=== PATIENT | male | born 1965 | race Caucasian/White ===

== ENCOUNTER 2018-03-02 02:34 | Inpatient (IN) | payer MEDICARE, MEDICAID ==
[2018-03-02] MEDS ORDERED: LORazepam INJ* 2 MG/ML 1 ML VIAL ONE (03:12)
[2018-03-02] MEDS ORDERED: diPHENhydraMINE IV* 50 MG/ML 1 ml VIAL (BENADRYL) ONE (03:12)
[2018-03-02] MEDS ORDERED: LORazepam TAB(*) 1 MG ONE (03:12)
[2018-03-02] MEDS ORDERED: Haloperidol INJ IV/IM* 5 MG/ML AMP ONE (03:12)
[2018-03-02 06:55] LABS: ABS Basophils 0.1 10^3/ul (0-0.2); ABS Eosinophils 0.1 10^3/ul (0-0.6); ABS Lymphocytes 2.3 10^3/ul (1.0-4.8); ABS Monocytes 0.9 10^3/ul (0-0.8); ABS Neutrophils 4.2 10^3/ul (1.5-7.7); ABS Nucleated RBC 0 10^3/ul; Eosinophil % 1.9 % (0-6); Hematocrit 38 % (42-52); Hemoglobin 12.9 g/dl (14.0-18.0); Lymphocyte % 30.6 % (25-47); Mean Corpuscular HGB Conc 34 g/dl (31-36); Mean Corpuscular Hemoglobin 29 pg (27-31); Mean Corpuscular Volume 86 fL (80-94); Mean Platelet Volume 7.8 um3 (7.4-10.4); Nucleated Red Blood Cells % 0.1; Platelet Count 187 10^3/ul (150-450); Red Blood Count 4.43 10^6/ul (4.00-5.40); Red Cell Distribution Width 15 % (10.5-15); White Blood Count 7.6 10^3/ul (3.5-10.8)
--- NOTE | 2018-03-02 06:57 | ED ---
Gato Moon Tiffany, scribed for Bayron Torres MD on 03/02/18 at 0318 . Psychiatric Complaint - HPI Summary HPI Summary: 52 year old M BIB EMS and police to [facility] complains of delusions since one hour ago. Symptoms aggravated by nothing. Symptoms alleviated by nothing. States that spaceship dropped him off from [place] and that he is [place]. - History Of Current Complaint Chief Complaint: EDMentalHealth Time Seen by Provider: 03/02/18 02:54 Hx Obtained From: Patient Onset/Duration: Lasting Hours - 1, Still Present Timing: Constant Aggravating Factor(s): Nothing Alleviating Factor(s): Nothing PMH/Surg Hx/FS Hx/Imm Hx Previously Healthy: No - LEV 5 CAV: Unable to confirm PMHx b/c pt is delusional Psychiatric History: Reports: Hx Inpatient Treatment, Hx Community Mental Health Tx, Hx Bipolar Disorder, Other Psychiatric Issues/Disorders - schizoaffective disorder - Surgical History Surgery Procedure, Year, and Place: LEV 5 CAV: Unable to confirm surg hx b/c pt is delusional - Immunization History Date of Tetanus Vaccine: unk Date of Influenza Vaccine: unk Infectious Disease History: Unable to Obtain/Confirm Infectious Disease History: Denies: Traveled Outside the [place] in Last 30 Days - Family History Known Family History: Positive: Other - LEV 5 CAV: Unable to confirm Fhx b/c pt is delusional - Social History Alcohol Amount: unknown Hx Substance Use: Yes Substance Use Type: Reports: Other Substance Use Comment - Amount & Last Used: unknown Smoking Status (MU): Unknown if Ever Smoked Review of Systems Negative: Fever Positive: Other - delusions All Other Systems Reviewed And Are Negative: Yes Physical Exam - Summary Physical Exam Summary: VITAL SIGNS: Reviewed. GENERAL: Patient is a well-developed and nourished male who is lying comfortable in the stretcher. Patient is not in any acute respiratory distress. HEAD AND FACE: No signs of trauma. No ecchymosis, hematomas or skull depressions. No sinus tenderness. EYES: PERRLA, EOMI x 2, No injected conjunctiva, no nystagmus. EARS: Hearing grossly intact. Ear canals and tympanic membranes are within normal limits. MOUTH: Oropharynx within normal limits. NECK: Supple, trachea is midline, no adenopathy, no JVD, no carotid bruit, no c- spine tenderness, neck with full ROM. CHEST: Symmetric, no tenderness at palpation LUNGS: Clear to auscultation bilaterally. No wheezing or crackles. CVS: Regular rate and rhythm, S1 and S2 present, no murmurs or gallops appreciated. ABDOMEN: Soft, non-tender. No signs of distention. No rebound no guarding, and no masses palpated. Bowel sounds are normal. EXTREMITIES: FROM in all major joints, no edema, no cyanosis or clubbing. NEURO: Alert and oriented x 3. No acute neurological deficits. Speech is normal and follows commands. SKIN: Dry and warm PSYCH: Patient is delusional, but cooperative Triage Information Reviewed: Yes Vital Signs On Initial Exam: Initial Vitals Temp Pulse Resp BP Pulse Ox 0 F 0 0 0/0 0 03/02/18 02:45 03/02/18 02:45 03/02/18 02:45 03/02/18 02:45 03/02/18 02:45 Vital Signs Reviewed: Yes Diagnostics - Vital Signs Vital Signs Temp Pulse Resp BP Pulse Ox 03/02/18 02:45 0 F 0 0 0/0 0 - Laboratory Lab Statement: Any lab studies that have been ordered have been reviewed, and results considered in the medical decision making process. Course/Dx - Course Course Of Treatment: 52 year old M BIB EMS and police to [facility] complains of delusions since one hour ago. Patient medically sedated in ED. Patient will be signed out to Dr. Montero at shift change, awaiting MHE, pending dispo. - Differential Dx/Clinical Impression Provider Diagnosis: Psychosis Discharge - Sign-Out/Discharge Documenting (check all that apply): Sign-Out Patient Signing out patient TO: Isaak Montero - awaiting MHE, pending dispo - Discharge Plan Condition: Stable The documentation as recorded by the Gato crawford Tiffany accurately reflects the service I personally performed and the decisions made by , Bayron Torres MD.
[2018-03-02 07:12] LABS: EGFR Non-African American 101.9 (>60)
[2018-03-02] MEDS ORDERED: LORazepam TAB(*) 1 MG PO ONE (10:46)
[2018-03-02] MEDS ORDERED: Haloperidol TAB* 5 MG PO ONE (10:46)
[2018-03-02] MEDS ORDERED: diPHENhydraMINE PO* 50 MG PO ONE (10:46)
--- NOTE | 2018-03-02 13:58 | ED ---
Talat Moon Angela, scribed for Isaak Montero MD on 03/02/18 at 1336 . Progress - Progress Note Progress Note: This pt was signed out by Dr. Torres, pending disposition, awaiting MHE. Pt had a mental health evaluation and his case was reviewed by Dr. Logan. Dr. Logan recommends admission to the unit with diagnosis of schizophrenia. Course/Dx - Diagnoses Provider Diagnoses: Schizophrenia Discharge - Sign-Out/Discharge Documenting (check all that apply): Discharge/Admit/Transfer - Admit, Receiving Sign-Out Receiving patient FROM: Bayron Torres - Discharge Plan Condition: Stable [facility] [place]: No Primary Care Phys,NOPCP [Primary Care Provider] - - Billing Disposition and Condition Condition: STABLE [place] [facility] [place] The documentation as recorded by the Talat crawford Angela accurately reflects the service I personally performed and the decisions made by Winston haywood Richard L, MD.
[2018-03-02] MEDS: Haloperidol TAB* 5 MG PO PRN (22:35)
[2018-03-02] MEDS: diPHENhydraMINE PO* 50 MG PO PRN (22:35)
[2018-03-03] MEDS: LORazepam TAB(*) 1 MG PO PRN ×2 (02:24→18:03)
[2018-03-03] MEDS: Vitamin THERAPEUTIC TAB PO SCH (08:14)
[2018-03-03] MEDS ORDERED: Paliperidone SUSTENNA* 156 MG/1 ML IM ONE (11:03)
[2018-03-03] MEDS: Atorvastatin* 20 MG TAB PO SCH (12:24)
[2018-03-03] MEDS: ARIPiprazole TAB* 15 MG PO SCH (12:24)
[2018-03-03] MEDS: busPIRone TAB* 15 MG PO SCH ×2 (12:25→20:12)
[2018-03-03] MEDS: Lisinopril TAB* 10 MG PO SCH (12:25)
[2018-03-03] MEDS: Famotidine TAB* 20 MG PO SCH (12:25)
[2018-03-03] MEDS: Lithium Carbonate TAB* 300 MG PO SCH ×2 (12:25→20:12)
[2018-03-03] MEDS: Fludrocortisone Acetate TAB* 0.1 MG PO SCH (12:52)
[2018-03-03] MEDS: Haloperidol TAB* 5 MG PO PRN (18:02)
[2018-03-03] MEDS: diPHENhydraMINE PO* 50 MG PO PRN (18:03)
--- NOTE | 2018-03-03 21:35 | HP ---
HISTORY AND PHYSICAL: DATE OF ADMISSION: 03/02/18. SUPERVISING PSYCHIATRIST: Dr. Joesph Logan* (dictated by HOWARD Tellez) . JUSTIFICATION FOR ADMISSION: The patient presented to the emergency department via police due to bizarre and delusional behavior in the community. He is originally from [place]. He has a history of schizophrenia and is unable to care for himself at this time. He merits hospitalization for immediate safety and stabilization. CHIEF COMPLAINT: "I am [place] student from 1881." HISTORY OF PRESENT ILLNESS: During the interview, the patient is disorganized and floridly psychotic. Most of the following history is obtained from collateral information from his sister. The patient is a 52-year-old white male , domiciled, and disabled, who lives in the [place] area. He was recently released from [facility] in [place]. The patient drove his own vehicle to [place]. He reported that he had bought a car to come down here and wanted to tell [place] to be the [facility] [employer] and Isaak reports that he has multiple cures for multiple diseases, including schizophrenia. According to the sister, the patient has a 22-year history of schizo-affective disorder bipolar type. The patient's mother in 2009. His father and elder sister last year and he has been declining mentally ever since. The patient was hospitalized at [facility] for eight months in 2017 and has a significant history of psychiatric hospitalizations in the [facility]. Sister reports he has a history of driving to various areas including across state borders and going off of his medications. He has done this as far as [place] and [place] and been hospitalized for lengthy amounts of time. His sister does report that when he is on medications, he is able to function primarily independently. He has a history of becoming violent, combative, and aggressive when he is in a delusional state. As stated above, while I am meeting with the patient, he is tangential, grandiose, and floridly psychotic. 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, and that he is scared because he is being chased by the [place] mafia. When I asked about social history, he gives me fictitious names such as Tuki, Pluto, and Wil. Patient goes on to describe various diseases for which he has cures. 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 The patient presents as hyperactive and hyper-christianity. He is also paranoid. He rescinds the release of information for his sister while we were talking. He declined to sign release of information trying to get prior records from [place]. He denies being hospitalized in hospitals that we know he has been. The patient denies depressed mood or anxious mood. He denies suicidality. He denies history of suicide attempts. He presents with an expansive mood. He is noted to attend to internal stimuli. He denies violent ideations, HI, or SI. PAST PSYCHIATRIC HISTORY: As stated above, he was most recently at [facility] in [place] for a brief stay. He had been getting his medications through [facility] outpatient in [place]. He had a primary care provider, named Dr. Tenorio, who manages his medications up to a week ago; but is no longer doing so due to the overwhelming number of calls and visits from the patient. As stated above, the patient has multiple psychiatric hospitalizations in [place], [place]. This is his first treatment inpatient to [facility] in [place]. TRAUMA ABUSE HISTORY: The patient denies history of abuse. He states his only traumatic event was last night when he was coming down from [facility]. PAST MEDICAL HISTORY: Medical history is difficult obtain due to the patient's presentation. He is taking medications for hypertension, hyperlipidemia, and GERD. The patient is morbidly obese, adrenal insufficiency. PAST SURGICAL HISTORY: He denies surgical history. PRIMARY CARE PROVIDER: The patient initially tells me it is Dr. Youssef, which is his fictitious doctor from [facility]. He was recently terminated from PCP, Dr Tenorio in [place]. CURRENT MEDICATIONS: Current medications were verified by nursing staff through his local pharmacy. 1. Florinef 0.1 mg p.o. daily. 2. Invega Sustenna IM 156 mg q.30 days. 3. Famotidine 20 mg p.o. daily. 4. Lipitor 20 mg p.o. daily. 5. Buspirone 5 mg p.o. b.i.d. 6. Downs carbonate 300 mg p.o. b.i.d. 7. Lisinopril 20 mg p.o. daily. 8. Aripiprazole 15 mg p.o. daily. Through our conversations, the patient states that he did not have Invega Sustenna injection and needs one today. ALLERGIES: The patient denies having allergies. FAMILY PSYCHIATRIC HISTORY: Unknown at this time. The patient states his family is disease free. SOCIAL HISTORY: The patient alludes to both of his parents passing away. He states that he has two sisters, Trudy and sister, Fatou. As stated above, he has an elder sister, who this year along with the father. The patient tells me he grew up in [place]. He refers to a step-father. SUBSTANCE USE HISTORY: The patient reports drinking alcohol approximately once a month and states that he likes a particular brand of liquor, I cannot remember what it is. He denied cigarettes, marijuana or other substance use. He has not given us a urine sample at this time. REVIEW OF SYSTEMS: The patient denies pain and there is no apparent distress. Constitutional: Negative. No fever, chills, or fatigue. ENT: Negative. Cardiovascular: Negative. Denies chest pain or palpitations. Respiratory: Negative. Denies shortness of breath or cough. Genitourinary: Negative. Musculoskeletal: Negative. Neurological: Negative. PHYSICAL EXAMINATION VITAL SIGNS: Height is 5 feet 6 inches. His weight is approximately 250 pounds. The patient has refused physical exam and vital signs. We will continue to establish rapport and physical exam will be attempted at a later time. DIAGNOSTIC STUDIES/LAB DATA: Laboratory data: CBC is noteworthy for a H and H slightly low at 12.9 and 38. Chemistry is within normal limits including TSH at 1.9. Hemoglobin A1c is normal at 5.2. Lipid panel is within normal limits. Toxicology is negative for salicylates, acetaminophen, or alcohol. We are awaiting a urinalysis and urine drug screen. MENTAL STATUS EXAM: The patient is a large white male, who appears slightly older than stated age. He is unshaved. He is dressed casually in his own clothing. He is disheveled and poorly groomed. His attitude is cooperative with brief moments of hostility and suspicion. He is alert and oriented x3. His memory is difficult to ascertain due to his psychotic state. Speech is rapid, pressured. His mood is expansive. Affect is labile. Eye contact is fair, poor at times. Thought process is tangential with flight of ideas. Thought content is positive for delusions, grandiosity, hyperreligiosity, and paranoia. Insight and judgement are impaired. Fund of knowledge is adequate. DIAGNOSES: Schizo-affective disorder bipolar type, current episode manic, hypertension, hyperlipidemia, adrenal insufficiency, gastroesophageal reflux disease. ASSESSMENT: Isaak is a 52-year-old male with an extensive psychiatric history , who presented for the first time to [facility] last evening. Apparently, he had driven his car to [place] impulsively. He interacted with the police multiple times and it was noted that he was psychotic and was brought to the emergency department. Collateral obtained from his sister, who was very helpful in identifying Isaak's history. The patient's medication list was verified by the pharmacy and we will reinstate those medications including his COFFEY Invega Sustenna today. PLAN: Admit to adult behavioral services unit on 9.39 status. Code status is full. The patient is on 15-minute checks for his safety. We will titrate medications to efficacy and monitor for mood and thought content. The patient is not appropriate for groups at this time. Estimated length of stay is 1 to 2 weeks. Discharge planning will include family involvement and outpatient providers with the patient's consent. HOWARD TELLEZ [id number]/CPS #: [id number] ELLE
[2018-03-04] MEDS: Haloperidol TAB* 5 MG PO PRN (05:30)
[2018-03-04] MEDS: diPHENhydraMINE PO* 50 MG PO PRN (05:30)
[2018-03-04] MEDS: LORazepam TAB(*) 1 MG PO PRN ×3 (05:30→20:00)
[2018-03-04] MEDS ORDERED: chlorproMAZINE TAB* 50 MG PO PRN (08:14)
[2018-03-04] MEDS: Famotidine TAB* 20 MG PO SCH (08:16)
[2018-03-04] MEDS: Lithium Carbonate TAB* 300 MG PO SCH ×2 (08:17→20:01)
[2018-03-04] MEDS: ARIPiprazole TAB* 15 MG PO SCH (08:17)
[2018-03-04] MEDS: Vitamin THERAPEUTIC TAB PO SCH (08:17)
[2018-03-04] MEDS: Atorvastatin* 20 MG TAB PO SCH (08:17)
[2018-03-04] MEDS: Lisinopril TAB* 10 MG PO SCH (08:17)
[2018-03-04] MEDS: busPIRone TAB* 15 MG PO SCH (08:18)
[2018-03-04] MEDS: Fludrocortisone Acetate TAB* 0.1 MG PO SCH (08:18)
[2018-03-04] MEDS ORDERED: Lithium Carbonate TAB* 300 MG PO SCH (09:00)
[2018-03-04] MEDS ORDERED: chlorproMAZINE TAB* 50 MG PO ONE (10:31)
--- NOTE | 2018-03-04 10:42 | PN ---
Subjective - Subjective Date of Service: 03/04/18 Service Type: 60874 Hosp care 25 min moderate complexity Subjective: Patient did not sleep well last night. He continues to present as floridly psychotic and manic. He responds to internal stimuli and is noted to be destructive in his room. He runs about the unit with seemingly no purpose, at times. He asks to meet with a doctor and principal technical writer notifies him of plan to be seen by on-call psychiatrist this weekend. Objective - Appearance Appearance: Obese Dysmorphic Features: No Hygiene: Mal-odorous Grooming: Disheveled - Behavior Psychomotor Activities: Abnormal-Increased Exhibits Abnormal Movement: No - Attitude and Relatedness Attitude and Relatedness: Psychotically Related Eye Contact: Poor - Speech Quality: Pressured Latencies: Normal Quantity: Terse - Mood Patient's Decription of Mood: no answer - Affect Observed Affect: Expansive Affect Consistent with: Euphoria - Thought Process Patient's Thought Process: Filght of Ideas Thought Content: Yes Paranoid Ideation, No Passive Wish, No Suicidal Planning, No Homicidal Ideation - Sensorium Experiencing Hallucinations: Yes Type of Hallucinations: Visual: No, Auditory: Yes, Command: Yes - Level of Consciousness Level of Consciousness: Alert Orientation: Yes Intact, Yes Orientated to Time, Yes Orientated to Place, Yes Orientated to Person - Impulse Control Impulse Control: Impaired - Insight and Judgement Insight and Judgement: Impaired - Group Participation Particating in Group Activities: No - Medication Management Medication Management Adherence: Yes Assessment - Assessment Merits Inpatient Hospitalization: For Immediate Safety, For Stabilization Inpatient DSM-V Dx: F25.0 Clinical Impression: 52yo white male with multiple hospitalizations at [facility] and other [facility]. He drove to [place] impulsively and was psychotically disorganized in the community. Collateral obtained from sisters in [place]. Isaak has a hx of schizoaffective d/o, bipolar type and can be violent when delusional. He is actively psychotic and merits hospitalization for immediate safety and stabilization. Plan - Plan Treatment Plan: Name: ISAAK LEOS Birthdate: 1965 [id number] continue acute intensive psychiatric treatment. Med changes: DC aripiprazole and buspirone. Increase lithium hs dose to 450mg. add invega 6mg po daily with plan to give invega sustenna higher dose on 03/07/18. DC haloperidol and utilize thorazine and lorazepam prn for agitation. obtain lithium level on morning of 03/07/18. discharge planning to include family and outpatient providers per patient consent. Continued Medication Management: Start Medication Medications: Current Medications Acetaminophen (Tylenol Tab*) 650 mg PO Q4H PRN PRN Reason: for pain; or Temp >101 F Atorvastatin Calcium (Lipitor*) 20 mg PO DAILY [facility] Last Admin: 03/04/18 08:17 Dose: 20 mg Chlorpromazine HCl (Thorazine Tab*) 100 mg PO Q6H PRN PRN Reason: AGITATION Diphenhydramine HCl (Benadryl Po*) 50 mg PO Q6H PRN PRN Reason: AGITATION Last Admin: 03/04/18 05:30 Dose: 50 mg Famotidine (Pepcid Tab*) 20 mg PO DAILY [facility] Last Admin: 03/04/18 08:16 Dose: 20 mg Fludrocortisone Acetate (Florinef Tab*) 0.1 mg PO DAILY [facility] Last Admin: 03/04/18 08:18 Dose: 0.1 mg Lisinopril (Prinivil Tab*) 20 mg PO DAILY [facility] Last Admin: 03/04/18 08:17 Dose: 20 mg [place] Carbonate (Sardis Carbonate Tab*) 450 mg PO BEDTIME HOWARD S[place]is Carbonate (Sardis Carbonate Tab*) 300 mg PO 0900 HOWARD Lorazepam (Ativan Tab(*)) 2 mg PO Q6H PRN PRN Reason: ANXIETY Last Admin: 03/04/18 05:30 Dose: 2 mg Multivitamins (Theragran Tab*) 1 tab PO DAILY [facility] Last Admin: 03/04/18 08:17 Dose: 1 tab Paliperidone (Invega Er Tab*) 6 mg PO BEDTIME HOWARD Paliperidone Palmitate (Invega Sustenna*) 234 mg IM ONCE ONE Stop: 03/07/18 10:01 - Discharge Plan Discharge Plan: Consider Longer Term Tx
[2018-03-04] MEDS: Paliperidone ER TAB* 6 MG TAB.ER PO SCH (20:03)
[2018-03-05] MEDS: Vitamin THERAPEUTIC TAB PO SCH (09:03)
[2018-03-05] MEDS: Atorvastatin* 20 MG TAB PO SCH (09:03)
[2018-03-05] MEDS: Lisinopril TAB* 10 MG PO SCH (09:03)
[2018-03-05] MEDS: Famotidine TAB* 20 MG PO SCH (09:03)
[2018-03-05] MEDS: Lithium Carbonate TAB* 300 MG PO SCH ×2 (09:03→21:42)
[2018-03-05] MEDS: Fludrocortisone Acetate TAB* 0.1 MG PO SCH (09:04)
--- NOTE | 2018-03-05 11:52 | PN ---
Subjective - Subjective Date of Service: 03/05/18 Service Type: 24527 Hosp care 15 min low complexity Subjective: Mr. Leos is seen in weekend coverage for orthotic technician, Johanne Laura. He is found lying down in his bed, talking to himself as though conversationally with an unseen person. "I want you to know that you have my name wrong in your system. It's not Kali. It's Shipping Processor. [id number]!" He goes on to say that he is in [place] to attend a summer camp at [employer] and that he is the [employer] of the [place]. He inquires whether I'm a fan of zappit but I mistakenly think he's asking me if I'm a fan of The [employer] Is Right. I attempt to clarify if he means the version with Edvin Canales, to which he replies "Edvin Canales, Henry Douglas, they walked on water!" Staff report that he is adherent with medications and cooperative on the unit. Objective - Appearance Appearance: Obese Dysmorphic Features: No Hygiene: Normal Grooming: Disheveled - Behavior Psychomotor Activities: Abnormal-Increased Exhibits Abnormal Movement: No - Attitude and Relatedness Attitude and Relatedness: Psychotically Related Eye Contact: Fair - Speech Quality: Pressured Latencies: Short Quantity: Copious - Mood Patient's Decription of Mood: "Great" - Affect Observed Affect: Expansive Affect Consistent with: Euphoria - Thought Process Patient's Thought Process: Disorganized Thought Content: Yes Paranoid Ideation, No Passive Wish, No Suicidal Planning, No Homicidal Ideation - Sensorium Experiencing Hallucinations: No, Sensorium is Clear Type of Hallucinations: Visual: No, Auditory: No, Command: No - Level of Consciousness Level of Consciousness: Alert Orientation: Yes Intact, Yes Orientated to Time, Yes Orientated to Place, Yes Orientated to Person - Impulse Control Impulse Control: Poor - Insight and Judgement Insight and Judgement: Impaired - Group Participation Particating in Group Activities: No - Medication Management Medication Management Adherence: Yes Assessment - Assessment Merits Inpatient Hospitalization: For Immediate Safety, For Stabilization Inpatient DSM-V Dx: F25.0 Clinical Impression: 52 y.o. single, white male with a history of chronic schizoaffective disorder, serial non-adherence with medications and multiple acute and intermediate care psychiatric hospitalizations, who is brought in to the hospital on involuntary 9.41 legal status by the police for creating a public disturbance, who presents with manic and psychotic symptoms and inability to care for himself in the community. Plan - Plan Treatment Plan: Name: CRISELDA LEOS Birthdate: 1965 [id number] The patient is on a medication regimen of COFFEY paliperidone, next dose due WednesdayMarch 07, lithium and prn chlorpromazine. He remains psychotic and manic and in need of further inpatient psychiatric stabilization for his safety. Continued Medication Management: Different Medication Medications: Current Medications Acetaminophen (Tylenol Tab*) 650 mg PO Q4H PRN PRN Reason: for pain; or Temp >101 F Atorvastatin Calcium (Lipitor*) 20 mg PO DAILY [facility] Last Admin: 03/05/18 09:03 Dose: 20 mg Chlorpromazine HCl (Thorazine Tab*) 100 mg PO Q6H PRN PRN Reason: AGITATION Diphenhydramine HCl (Benadryl Po*) 50 mg PO Q6H PRN PRN Reason: AGITATION Last Admin: 03/04/18 05:30 Dose: 50 mg Famotidine (Pepcid Tab*) 20 mg PO DAILY [facility] Last Admin: 03/05/18 09:03 Dose: 20 mg Fludrocortisone Acetate (Florinef Tab*) 0.1 mg PO DAILY [facility] Last Admin: 03/05/18 09:04 Dose: 0.1 mg Lisinopril (Prinivil Tab*) 20 mg PO DAILY [facility] Last Admin: 03/05/18 09:03 Dose: 20 mg [place] Carbonate ([place] Carbonate Tab*) 450 mg PO BEDTIME HOWARD Last Admin: 03/04/18 20:01 Dose: 450 mg [place] Carbonate ([place] Carbonate Tab*) 300 mg PO 0900 HOWARD Last Admin: 03/05/18 09:03 Dose: 300 mg Lorazepam (Ativan Tab(*)) 2 mg PO Q6H PRN PRN Reason: ANXIETY Last Admin: 03/04/18 20:00 Dose: 2 mg Multivitamins (Theragran Tab*) 1 tab PO DAILY [facility] Last Admin: 03/05/18 09:03 Dose: 1 tab Paliperidone (Invega Er Tab*) 6 mg PO BEDTIME HOWARD Last Admin: 03/04/18 20:03 Dose: 6 mg Paliperidone Palmitate (Invega Sustenna*) 234 mg IM ONCE ONE Stop: 03/07/18 10:01 - Discharge Plan Discharge Plan: Inpatient Hospitalization Lab Results - Lab Results Lab Results: 03/02/18 03/02/18 06:48 06:48 Sodium 138 Potassium 4.4 Chloride 108 Carbon Dioxide 27 Anion Gap 3 BUN 16 Creatinine 0.80 Est GFR ( Amer) 123.3 Est GFR (Non-Af Amer) 101.9 BUN/Creatinine Ratio 20.0 Glucose 94 Hemoglobin A1c 5.2 Calcium 8.8 Total Bilirubin 0.40 AST 26 ALT 19 Alkaline Phosphatase 66 Total Protein 6.1 L Albumin 3.7 Globulin 2.4 Albumin/Globulin Ratio 1.5 Triglycerides 52 Cholesterol 132 LDL Cholesterol 80 HDL Cholesterol 42.1 TSH 1.90 Salicylates < 2.50 Acetaminophen < 15 Serum Alcohol < 10
[2018-03-05] MEDS: LORazepam TAB(*) 1 MG PO PRN (15:23)
[2018-03-05] MEDS: Paliperidone ER TAB* 6 MG TAB.ER PO SCH (21:40)
[2018-03-06] MEDS: Fludrocortisone Acetate TAB* 0.1 MG PO SCH (07:05)
[2018-03-06] MEDS: Atorvastatin* 20 MG TAB PO SCH (07:05)
[2018-03-06] MEDS: Famotidine TAB* 20 MG PO SCH (07:05)
[2018-03-06] MEDS: Vitamin THERAPEUTIC TAB PO SCH (07:05)
[2018-03-06] MEDS: Lisinopril TAB* 10 MG PO SCH (07:05)
[2018-03-06] MEDS: Lithium Carbonate TAB* 300 MG PO SCH ×2 (07:05→19:52)
[2018-03-06] MEDS: Paliperidone ER TAB* 6 MG TAB.ER PO SCH (19:52)
[2018-03-06] MEDS: LORazepam TAB(*) 1 MG PO PRN (23:50)
[2018-03-06] MEDS: diPHENhydraMINE PO* 50 MG PO PRN (23:50)
[2018-03-06] MEDS: chlorproMAZINE TAB* 100 MG PO PRN (23:50)
[2018-03-07] MEDS: Atorvastatin* 20 MG TAB PO SCH (08:46)
[2018-03-07] MEDS: Lithium Carbonate TAB* 300 MG PO SCH ×2 (08:47→21:00)
[2018-03-07] MEDS: Vitamin THERAPEUTIC TAB PO SCH (08:47)
[2018-03-07] MEDS: Lisinopril TAB* 10 MG PO SCH (08:47)
[2018-03-07] MEDS: Famotidine TAB* 20 MG PO SCH (08:47)
[2018-03-07] MEDS: Fludrocortisone Acetate TAB* 0.1 MG PO SCH (08:48)
[2018-03-07] MEDS ORDERED: Paliperidone SUSTENNA* 234 MG/1.5 ML IM ONE (10:00)
--- NOTE | 2018-03-07 11:47 | PN ---
Subjective - Subjective Date of Service: 03/07/18 Service Type: 06571 Hosp care 15 min low complexity Subjective: Criselda, who states his name is Gita or Celsa, states he is sad and depressed, although not so much at the immediate moment. He asks questions multiple times and does not seem ready to retain information immediately. When given an opportunity to discuss medications, he was quiet and did not have much to say. Objective - Appearance Appearance: Obese Dysmorphic Features: No Hygiene: Normal Grooming: Disheveled - Behavior Psychomotor Activities: Normal Exhibits Abnormal Movement: No - Attitude and Relatedness Attitude and Relatedness: Psychotically Related Eye Contact: Fair - Speech Quality: Unpressured Latencies: Normal Quantity: Appropriate - Mood Patient's Decription of Mood: "Okay" - Affect Observed Affect: Constricted Affect Consistent with: Dysphoria - Thought Process Patient's Thought Process: Coherent, Loose Associations Thought Content: No Passive Wish, No Suicidal Planning, No Homicidal Ideation, No Paranoid Ideation - Sensorium Experiencing Hallucinations: No, Sensorium is Clear Type of Hallucinations: Visual: No, Auditory: No, Command: No - Level of Consciousness Level of Consciousness: Alert Orientation: Yes Intact, Yes Orientated to Time, Yes Orientated to Place, Yes Orientated to Person - Impulse Control Impulse Control: Tenuous - Insight and Judgement Insight and Judgement: Impaired - Group Participation Particating in Group Activities: No - Medication Management Medication Management Adherence: Yes Assessment - Assessment Merits Inpatient Hospitalization: For Immediate Safety Inpatient DSM-V Dx: F25.0 Clinical Impression: 52-year-old obese man with psychosis who talks frequently about Star [employer]. He is currently psychotic and behaving strangely. Plan - Plan Treatment Plan: Name: CRISELDA LEOS Birthdate: 1965 [id number] Medications: Current Medications Acetaminophen (Tylenol Tab*) 650 mg PO Q4H PRN PRN Reason: for pain; or Temp >101 F Atorvastatin Calcium (Lipitor*) 20 mg PO DAILY [facility] Last Admin: 03/07/18 08:46 Dose: 20 mg Chlorpromazine HCl (Thorazine Tab*) 100 mg PO Q6H PRN PRN Reason: AGITATION Last Admin: 03/06/18 23:50 Dose: 100 mg Diphenhydramine HCl (Benadryl Po*) 50 mg PO Q6H PRN PRN Reason: AGITATION Last Admin: 03/06/18 23:50 Dose: 50 mg Famotidine (Pepcid Tab*) 20 mg PO DAILY [facility] Last Admin: 03/07/18 08:47 Dose: 20 mg Fludrocortisone Acetate (Florinef Tab*) 0.1 mg PO DAILY [facility] Last Admin: 03/07/18 08:48 Dose: 0.1 mg Lisinopril (Prinivil Tab*) 20 mg PO DAILY [facility] Last Admin: 03/07/18 08:47 Dose: 20 mg [place] Carbonate ([place] Carbonate Tab*) 450 mg PO BEDTIME [facility] Last Admin: 03/06/18 19:52 Dose: 450 mg [place] Carbonate ([place] Carbonate Tab*) 300 mg PO 0900 [facility] Last Admin: 03/07/18 08:47 Dose: 300 mg Lorazepam (Ativan Tab(*)) 2 mg PO Q6H PRN PRN Reason: ANXIETY Last Admin: 03/06/18 23:50 Dose: 2 mg Multivitamins (Theragran Tab*) 1 tab PO DAILY [facility] Last Admin: 03/07/18 08:47 Dose: 1 tab Paliperidone (Invega Er Tab*) 6 mg PO BEDTIME [facility] Last Admin: 03/06/18 19:52 Dose: 6 mg - Discharge Plan Discharge Plan: Outpatient Follow Up Additional Comments: Criselda is not yet ready for discharge. As more medications make their way into his body, more stability may be found. At that point he will be ready for discharge.
[2018-03-07] MEDS: LORazepam TAB(*) 1 MG PO PRN (14:48)
[2018-03-07] MEDS: chlorproMAZINE TAB* 100 MG PO PRN (14:49)
[2018-03-07] MEDS: diPHENhydraMINE PO* 50 MG PO PRN (14:49)
[2018-03-07] MEDS: Paliperidone ER TAB* 6 MG TAB.ER PO SCH (21:00)
[2018-03-08] MEDS: Acetaminophen TAB* 325 MG PO PRN ×3 (03:17→20:09)
[2018-03-08] MEDS: Vitamin THERAPEUTIC TAB PO SCH (07:05)
[2018-03-08] MEDS: Fludrocortisone Acetate TAB* 0.1 MG PO SCH (07:05)
[2018-03-08] MEDS: Lisinopril TAB* 10 MG PO SCH (07:05)
[2018-03-08] MEDS: Lithium Carbonate TAB* 300 MG PO SCH ×2 (07:05→20:07)
[2018-03-08] MEDS: Atorvastatin* 20 MG TAB PO SCH (07:05)
[2018-03-08] MEDS: Famotidine TAB* 20 MG PO SCH (07:05)
[2018-03-08] MEDS ORDERED: Lithium Carbonate TAB* 300 MG PO SCH (09:00)
[2018-03-08 14:40] LABS: Urine Appearance Clear; Urine Blood Negative (Negative); Urine Color Yellow; Urine Ketones Negative (Negative); Urine Protein Negative (Negative); Urine Specific Gravity 1.012 (1.010-1.030); Urine Urobilinogen Negative (Negative)
--- NOTE | 2018-03-08 14:52 | PN ---
Subjective - Subjective Service Type: 34171 Hosp care 25 min moderate complexity Subjective: patient noted to have verbal outbursts in milieu, seemingly without provocation. He continues to present with delusional thought content. I inquire about obtaining a UA and he tells me he will not allow any tests or VS taken because he is "jehovah witnesses." He also states he is God and that Alverto was a false prophet but that the Earth does not know this yet. He provides a urine specimen in cup given to him by newswriter. He gives me a false name then smiles when I correct him. Objective - Appearance Appearance: Obese Dysmorphic Features: No Hygiene: Normal Grooming: Disheveled - Behavior Psychomotor Activities: Normal Exhibits Abnormal Movement: No - Attitude and Relatedness Attitude and Relatedness: Psychotically Related Eye Contact: Fair - Speech Quality: Unpressured Latencies: Normal Quantity: Copious - Mood Patient's Decription of Mood: "Okay" - Affect Observed Affect: Expansive Affect Consistent with: Euphoria - Thought Process Patient's Thought Process: Tangential Thought Content: Yes Paranoid Ideation, No Passive Wish, No Suicidal Planning, No Homicidal Ideation - Sensorium Experiencing Hallucinations: Yes Type of Hallucinations: Visual: No, Auditory: Yes, Command: Yes - Level of Consciousness Level of Consciousness: Alert Orientation: Yes Intact, Yes Orientated to Time, Yes Orientated to Place, Yes Orientated to Person - Impulse Control Impulse Control: Tenuous - Insight and Judgement Insight and Judgement: Impaired - Group Participation Particating in Group Activities: No - Medication Management Medication Management Adherence: Yes Assessment - Assessment Merits Inpatient Hospitalization: For Immediate Safety, For Stabilization, Consolidate Improvements Inpatient DSM-V Dx: F25.0 Clinical Impression: 52yo white male with multiple hospitalizations at [facility] and other [facility]. He drove to [place] impulsively and was psychotically disorganized in the community. Collateral obtained from sisters in [place]. Isaak has a hx of schizoaffective d/o, bipolar type and can be violent when delusional. He is actively psychotic and merits hospitalization for immediate safety and stabilization. Plan - Plan Treatment Plan: Name: ISAAK LEOS Birthdate: 1965 [id number] continue acute intensive psychiatric treatment. Med changes: Increase lithium to 600mg BID, continue oral paliperidone. continue to utilize thorazine and lorazepam prn for agitation. discharge planning to include family and outpatient providers per patient consent. Continued Medication Management: Different Medication Medications: Current Medications Acetaminophen (Tylenol Tab*) 650 mg PO Q4H PRN PRN Reason: for pain; or Temp >101 F Last Admin: 03/08/18 11:44 Dose: 325 mg Atorvastatin Calcium (Lipitor*) 20 mg PO DAILY [facility] Last Admin: 03/08/18 07:05 Dose: 20 mg Chlorpromazine HCl (Thorazine Tab*) 100 mg PO Q6H PRN PRN Reason: AGITATION Last Admin: 03/07/18 14:49 Dose: 100 mg Diphenhydramine HCl (Benadryl Po*) 50 mg PO Q6H PRN PRN Reason: AGITATION Last Admin: 03/07/18 14:49 Dose: 50 mg Famotidine (Pepcid Tab*) 20 mg PO DAILY [facility] Last Admin: 03/08/18 07:05 Dose: 20 mg Fludrocortisone Acetate (Florinef Tab*) 0.1 mg PO DAILY [facility] Last Admin: 03/08/18 07:05 Dose: 0.1 mg Lisinopril (Prinivil Tab*) 20 mg PO DAILY [facility] Last Admin: 03/08/18 07:05 Dose: 20 mg [place] Carbonate ([place] Carbonate Tab*) 600 mg PO BID [facility] Lorazepam (Ativan Tab(*)) 2 mg PO Q6H PRN PRN Reason: ANXIETY Last Admin: 03/07/18 14:48 Dose: 2 mg Multivitamins (Theragran Tab*) 1 tab PO DAILY [facility] Last Admin: 03/08/18 07:05 Dose: 1 tab Paliperidone (Invega Er Tab*) 6 mg PO BEDTIME [facility] Last Admin: 03/07/18 21:00 Dose: 6 mg - Discharge Plan Discharge Plan: Consider Longer Term Tx
[2018-03-08] MEDS: Paliperidone ER TAB* 6 MG TAB.ER PO SCH (20:08)
[2018-03-09] MEDS: LORazepam TAB(*) 1 MG PO PRN (01:20)
[2018-03-09] MEDS: diPHENhydraMINE PO* 50 MG PO PRN (01:20)
[2018-03-09] MEDS: chlorproMAZINE TAB* 100 MG PO PRN (01:20)
[2018-03-09] MEDS: Famotidine TAB* 20 MG PO SCH (09:35)
[2018-03-09] MEDS: Vitamin THERAPEUTIC TAB PO SCH (09:35)
[2018-03-09] MEDS: Fludrocortisone Acetate TAB* 0.1 MG PO SCH (09:35)
[2018-03-09] MEDS: Atorvastatin* 20 MG TAB PO SCH (09:35)
[2018-03-09] MEDS: Lithium Carbonate TAB* 300 MG PO SCH ×2 (09:36→20:46)
[2018-03-09] MEDS: Lisinopril TAB* 10 MG PO SCH (09:36)
[2018-03-09] MEDS: Acetaminophen TAB* 325 MG PO PRN (09:37)
[2018-03-09] MEDS: Paliperidone ER TAB* 6 MG TAB.ER PO SCH (20:46)
[2018-03-10] MEDS: Atorvastatin* 20 MG TAB PO SCH (07:46)
[2018-03-10] MEDS: Famotidine TAB* 20 MG PO SCH (07:46)
[2018-03-10] MEDS: Lisinopril TAB* 10 MG PO SCH (07:46)
[2018-03-10] MEDS: Vitamin THERAPEUTIC TAB PO SCH (07:47)
[2018-03-10] MEDS: Lithium Carbonate TAB* 300 MG PO SCH ×2 (07:47→21:05)
[2018-03-10] MEDS: Fludrocortisone Acetate TAB* 0.1 MG PO SCH (07:47)
[2018-03-10] MEDS: LORazepam TAB(*) 1 MG PO PRN ×2 (08:08→17:37)
[2018-03-10] MEDS: diPHENhydraMINE PO* 50 MG PO PRN ×2 (08:08→17:37)
[2018-03-10] MEDS: chlorproMAZINE TAB* 100 MG PO PRN (08:08)
--- NOTE | 2018-03-10 11:17 | PN ---
Subjective - Subjective Date of Service: 03/10/18 Service Type: 82518 Hosp care 25 min moderate complexity Subjective: Patient continues to exhibit increased energy, disorganization and impulsivity. He threw a plate in the hallway and initially denied it, then told staff he is "good at florentino." He is observed to talk to himself in his room. Stick Inserter spoke with patient's sister Fatou and gave an update on treatment and status. She reports he has been increasingly manic over the last few months, including "firing" outpatient providers. She made a new patient appointment for him at [facility] on March 31. She states he was doing well when working with [facility] outpatient most recently. He had previously treated by [facility], as well. She spoke of him being involved with [facility] case mgmt in [place] and may have an open case with them. She could not recall the home care chaplain's name but it may be "Christi." She states appreciation that we have involved her and encourages continued contact for discharge planning. Objective - Appearance Appearance: Obese Dysmorphic Features: No Hygiene: Normal Grooming: Fairly Well Kept - Behavior Psychomotor Activities: Normal Exhibits Abnormal Movement: No - Attitude and Relatedness Attitude and Relatedness: Psychotically Related Eye Contact: Poor - Speech Quality: Pressured Latencies: Long Quantity: Terse - Mood Patient's Decription of Mood: "Fine" - Affect Observed Affect: Expansive Affect Consistent with: Euphoria - Thought Process Patient's Thought Process: Tangential, Filght of Ideas Thought Content: Yes Paranoid Ideation, No Passive Wish, No Suicidal Planning, No Homicidal Ideation - Sensorium Experiencing Hallucinations: Yes Type of Hallucinations: Visual: Yes, Auditory: Yes, Command: Yes - Level of Consciousness Level of Consciousness: Alert Orientation: Yes Intact, Yes Orientated to Time, Yes Orientated to Place, Yes Orientated to Person - Impulse Control Impulse Control: Impaired - Insight and Judgement Insight and Judgement: Impaired - Group Participation Particating in Group Activities: No - Medication Management Medication Management Adherence: Yes Assessment - Assessment Merits Inpatient Hospitalization: For Immediate Safety, For Stabilization, Consolidate Improvements, For Discharge Planning Inpatient DSM-V Dx: F25.0 Clinical Impression: 52yo white male with multiple hospitalizations at [facility] and other [facility]. He drove to [place] impulsively and was psychotically disorganized in the community. Collateral obtained from sisters in [place]. Criselda has a hx of schizoaffective d/o, bipolar type and can be violent when delusional. He is actively psychotic and merits hospitalization for immediate safety and stabilization. Plan - Plan Treatment Plan: Name: CRISELDA LEOS Birthdate: 1965 [id number] continue acute intensive psychiatric treatment. Med changes: add scheduled thorazine at bedtime, utilize haloperidol and lorazepam prn for agitation. continue all scheduled medications. obtain lithium level and BMP in AM. discharge planning to include family and outpatient providers per patient consent. Continued Medication Management: Different Medication Medications: Current Medications Acetaminophen (Tylenol Tab*) 650 mg PO Q4H PRN PRN Reason: for pain; or Temp >101 F Last Admin: 03/09/18 09:37 Dose: 650 mg Atorvastatin Calcium (Lipitor*) 20 mg PO DAILY [facility] Last Admin: 03/10/18 07:46 Dose: 20 mg Chlorpromazine HCl (Thorazine Tab*) 100 mg PO Q6H PRN PRN Reason: AGITATION Last Admin: 03/10/18 08:08 Dose: 100 mg Chlorpromazine HCl (Thorazine Tab*) 100 mg PO BEDTIME [facility] Diphenhydramine HCl (Benadryl Po*) 50 mg PO Q6H PRN PRN Reason: AGITATION Last Admin: 03/10/18 08:08 Dose: 50 mg Famotidine (Pepcid Tab*) 20 mg PO DAILY [facility] Last Admin: 03/10/18 07:46 Dose: 20 mg Fludrocortisone Acetate (Florinef Tab*) 0.1 mg PO DAILY [facility] Last Admin: 03/10/18 07:47 Dose: 0.1 mg Lisinopril (Prinivil Tab*) 20 mg PO DAILY [facility] Last Admin: 03/10/18 07:46 Dose: 20 mg [place] Carbonate ([place] Carbonate Tab*) 600 mg PO BID [facility] Last Admin: 03/10/18 07:47 Dose: 600 mg Lorazepam (Ativan Tab(*)) 2 mg PO Q6H PRN PRN Reason: ANXIETY Last Admin: 03/10/18 08:08 Dose: 2 mg Multivitamins (Theragran Tab*) 1 tab PO DAILY [facility] Last Admin: 03/10/18 07:47 Dose: 1 tab Paliperidone (Invega Er Tab*) 6 mg PO BEDTIME [facility] Last Admin: 03/09/18 20:46 Dose: 6 mg - Discharge Plan Discharge Plan: Outpatient Follow Up
--- NOTE | 2018-03-10 16:22 | PN ---
[facility]: Group Therapy Note - Service Type Service Type: [id number] Group Psychotherapy - Medication Education Group: Patient attended group and presented with flat affect that did not vary with discussion. Noted to have bizarre reactions to information.
[2018-03-10] MEDS: chlorproMAZINE TAB* 100 MG PO SCH (21:04)
[2018-03-10] MEDS: Paliperidone ER TAB* 6 MG TAB.ER PO SCH (21:05)
[2018-03-11] MEDS: LORazepam TAB(*) 1 MG PO PRN ×2 (00:26→08:19)
[2018-03-11] MEDS: diPHENhydraMINE PO* 50 MG PO PRN ×2 (00:26→08:20)
[2018-03-11] MEDS: Haloperidol TAB* 5 MG PO PRN (08:20)
[2018-03-11] MEDS: Fludrocortisone Acetate TAB* 0.1 MG PO SCH (08:50)
[2018-03-11] MEDS: Famotidine TAB* 20 MG PO SCH (08:50)
[2018-03-11] MEDS: Lisinopril TAB* 10 MG PO SCH (08:50)
[2018-03-11] MEDS: Atorvastatin* 20 MG TAB PO SCH (08:50)
[2018-03-11] MEDS: Vitamin THERAPEUTIC TAB PO SCH (08:50)
[2018-03-11 10:05] LABS: EGFR Non-African American 109.8 (>60)
[2018-03-11 10:27] LABS: Lithium 0.46 mmol/L (0.6-1.2)
[2018-03-11] MEDS: Lithium Carbonate TAB* 300 MG PO SCH ×2 (10:32→20:22)
--- NOTE | 2018-03-11 13:39 | PN ---
Subjective - Subjective Date of Service: 03/11/18 Service Type: 79171 Hosp care 25 min moderate complexity Subjective: patient continues to exhibit behaviors indicative of internal stimuli, congregational preoccupation and delusional thought content. He is agitated at times ; receptive to offer of prn medications. he allowed phlebotomy with the assistance of female nursing staff, one of whom he referred to as his "earth ." lithium level showed mild increase from 0.32 to 0.46. will increase lithium dose at bedtime. Objective - Appearance Appearance: Obese Dysmorphic Features: No Hygiene: Normal Grooming: Fairly Well Kept - Behavior Psychomotor Activities: Normal Exhibits Abnormal Movement: No - Attitude and Relatedness Attitude and Relatedness: Psychotically Related Eye Contact: Fair - Speech Quality: Pressured Latencies: Long Quantity: Copious - Mood Patient's Decription of Mood: "Okay" - Affect Observed Affect: Expansive Affect Consistent with: Euphoria - Thought Process Patient's Thought Process: Disorganized, Loose Associations, Tangential, Filght of Ideas Thought Content: Yes Paranoid Ideation, No Passive Wish, No Suicidal Planning, No Homicidal Ideation - Sensorium Experiencing Hallucinations: Yes Type of Hallucinations: Visual: Yes, Auditory: Yes, Command: Yes - Level of Consciousness Level of Consciousness: Alert Orientation: Yes Intact, Yes Orientated to Time, Yes Orientated to Place, Yes Orientated to Person - Impulse Control Impulse Control: Poor - Insight and Judgement Insight and Judgement: Impaired - Group Participation Particating in Group Activities: No - Medication Management Medication Management Adherence: Yes Assessment - Assessment Merits Inpatient Hospitalization: For Immediate Safety, For Stabilization, Consolidate Improvements, For Discharge Planning Inpatient DSM-V Dx: F25.0 Clinical Impression: 52yo white male with multiple hospitalizations at [facility] and other [facility]. He drove to [place] impulsively and was psychotically disorganized in the community. Collateral obtained from sisters in [place]. Isaak has a hx of schizoaffective d/o, bipolar type and can be violent when delusional. He is actively psychotic and merits hospitalization for immediate safety and stabilization. Plan - Plan Treatment Plan: Name: ISAAK LEOS Birthdate: 1965 [id number] continue acute intensive psychiatric treatment. convert legal status to 9.27 ( 2pc). Med changes: increase lithium hs dose, utilize haloperidol and lorazepam prn for agitation. continue all scheduled medications. discharge planning to include family and outpatient providers per patient consent. may consider referral to [facility] if no improvement. Continued Medication Management: Different Medication Medications: Current Medications Acetaminophen (Tylenol Tab*) 650 mg PO Q4H PRN PRN Reason: for pain; or Temp >101 F Last Admin: 03/09/18 09:37 Dose: 650 mg Atorvastatin Calcium (Lipitor*) 20 mg PO DAILY [facility] Last Admin: 03/11/18 08:50 Dose: 20 mg Chlorpromazine HCl (Thorazine Tab*) 100 mg PO BEDTIME [facility] Last Admin: 03/10/18 21:04 Dose: 100 mg Diphenhydramine HCl (Benadryl Po*) 50 mg PO Q6H PRN PRN Reason: AGITATION Last Admin: 03/11/18 08:20 Dose: 50 mg Famotidine (Pepcid Tab*) 20 mg PO DAILY [facility] Last Admin: 03/11/18 08:50 Dose: 20 mg Fludrocortisone Acetate (Florinef Tab*) 0.1 mg PO DAILY [facility] Last Admin: 03/11/18 08:50 Dose: 0.1 mg Haloperidol (Haldol Tab*) 5 mg PO Q6H PRN PRN Reason: AGITATION Last Admin: 03/11/18 08:20 Dose: 5 mg Lisinopril (Prinivil Tab*) 20 mg PO DAILY [facility] Last Admin: 03/11/18 08:50 Dose: 20 mg [place] Carbonate (Petal Carbonate Tab*) 1,200 mg PO BEDTIME [facility] [place] Carbonate (Petal Carbonate Tab*) 600 mg PO DAILY [facility] Lorazepam (Ativan Tab(*)) 2 mg PO Q6H PRN PRN Reason: ANXIETY Last Admin: 03/11/18 08:19 Dose: 2 mg Multivitamins (Theragran Tab*) 1 tab PO DAILY [facility] Last Admin: 03/11/18 08:50 Dose: 1 tab Paliperidone (Invega Er Tab*) 6 mg PO BEDTIME [facility] Last Admin: 03/10/18 21:05 Dose: 6 mg - Discharge Plan Discharge Plan: Consider Longer Term Tx
[2018-03-11] MEDS: chlorproMAZINE TAB* 100 MG PO SCH (20:22)
[2018-03-11] MEDS: Paliperidone ER TAB* 6 MG TAB.ER PO SCH (20:23)
[2018-03-11] MEDS: Acetaminophen TAB* 325 MG PO PRN (20:25)
[2018-03-12] MEDS: diPHENhydraMINE PO* 50 MG PO PRN ×2 (04:49→18:00)
[2018-03-12] MEDS: LORazepam TAB(*) 1 MG PO PRN ×2 (04:49→18:01)
[2018-03-12] MEDS: Haloperidol TAB* 5 MG PO PRN ×2 (04:50→18:01)
[2018-03-12] MEDS: Lithium Carbonate TAB* 300 MG PO SCH ×2 (09:53→20:00)
[2018-03-12] MEDS: Vitamin THERAPEUTIC TAB PO SCH (09:53)
[2018-03-12] MEDS: Famotidine TAB* 20 MG PO SCH (09:53)
[2018-03-12] MEDS: Fludrocortisone Acetate TAB* 0.1 MG PO SCH (09:54)
[2018-03-12] MEDS: Lisinopril TAB* 10 MG PO SCH (09:54)
[2018-03-12] MEDS: Atorvastatin* 20 MG TAB PO SCH (09:54)
[2018-03-12] MEDS: chlorproMAZINE TAB* 100 MG PO SCH (20:00)
[2018-03-12] MEDS: Paliperidone ER TAB* 6 MG TAB.ER PO SCH (20:00)
[2018-03-13] MEDS: Haloperidol TAB* 5 MG PO PRN ×2 (00:31→05:56)
[2018-03-13] MEDS: diPHENhydraMINE PO* 50 MG PO PRN ×2 (00:32→05:54)
[2018-03-13] MEDS: LORazepam TAB(*) 1 MG PO PRN ×2 (00:32→05:56)
[2018-03-13] MEDS: Atorvastatin* 20 MG TAB PO SCH (08:52)
[2018-03-13] MEDS: Lithium Carbonate TAB* 300 MG PO SCH ×2 (08:52→20:17)
[2018-03-13] MEDS: Fludrocortisone Acetate TAB* 0.1 MG PO SCH (08:52)
[2018-03-13] MEDS: Lisinopril TAB* 10 MG PO SCH (08:52)
[2018-03-13] MEDS: Vitamin THERAPEUTIC TAB PO SCH (08:53)
[2018-03-13] MEDS: Famotidine TAB* 20 MG PO SCH (08:53)
[2018-03-13] MEDS: Acetaminophen TAB* 325 MG PO PRN (11:31)
[2018-03-13] MEDS: chlorproMAZINE TAB* 100 MG PO SCH (20:16)
[2018-03-13] MEDS: Paliperidone ER TAB* 6 MG TAB.ER PO SCH (20:16)
[2018-03-14] MEDS: Haloperidol TAB* 5 MG PO PRN (06:30)
[2018-03-14] MEDS: LORazepam TAB(*) 1 MG PO PRN (06:30)
[2018-03-14] MEDS: diPHENhydraMINE PO* 50 MG PO PRN (06:30)
[2018-03-14] MEDS: Lisinopril TAB* 10 MG PO SCH (09:33)
[2018-03-14] MEDS: Famotidine TAB* 20 MG PO SCH (09:33)
[2018-03-14] MEDS: Atorvastatin* 20 MG TAB PO SCH (09:34)
[2018-03-14] MEDS: Lithium Carbonate TAB* 300 MG PO SCH ×2 (09:34→20:24)
[2018-03-14] MEDS: Fludrocortisone Acetate TAB* 0.1 MG PO SCH (09:34)
[2018-03-14] MEDS: Vitamin THERAPEUTIC TAB PO SCH (09:34)
--- NOTE | 2018-03-14 17:07 | PN ---
Subjective - Subjective Date of Service: 03/14/18 Service Type: 48300 Hosp care 35 min high complexity Subjective: Patient continues to be disruptive in milieu. He throws objects, punched a wall near a peer who was on the phone, and collects toiletries and supplies from the unit to danna in his room. Patient is accepting prn medications with little to no effect. Inspector Mechanical discussed trial of clozapine and [facility]. Patient agreed to both and phoned [facility] to leave a message to give clearance. Objective - Appearance Appearance: Obese Dysmorphic Features: No Hygiene: Mal-odorous Grooming: Disheveled - Behavior Psychomotor Activities: Normal Exhibits Abnormal Movement: No - Attitude and Relatedness Attitude and Relatedness: Psychotically Related Eye Contact: Fair - Speech Quality: Unpressured Latencies: Normal Quantity: Appropriate - Mood Patient's Decription of Mood: "Okay" - Affect Observed Affect: Expansive Affect Consistent with: Euphoria - Thought Process Patient's Thought Process: Loose Associations, Tangential Thought Content: Yes Paranoid Ideation, No Passive Wish, No Suicidal Planning, No Homicidal Ideation - Sensorium Experiencing Hallucinations: Yes Type of Hallucinations: Visual: Yes, Auditory: Yes, Command: Yes - Level of Consciousness Level of Consciousness: Alert Orientation: Yes Intact, Yes Orientated to Time, Yes Orientated to Place, Yes Orientated to Person - Impulse Control Impulse Control: Impaired - Insight and Judgement Insight and Judgement: Impaired - Group Participation Particating in Group Activities: No - Medication Management Medication Management Adherence: Yes Assessment - Assessment Merits Inpatient Hospitalization: For Immediate Safety, For Stabilization, To Initiate Treatment Inpatient DSM-V Dx: F25.0 Clinical Impression: 52yo white male with multiple hospitalizations at [facility] and other [facility]. He drove to [place] impulsively and was psychotically disorganized in the community. Collateral obtained from sisters in [place]. Isaak has a hx of schizoaffective d/o, bipolar type and can be violent when delusional. He is actively psychotic and merits hospitalization for immediate safety and stabilization. Plan - Plan Treatment Plan: Name: ISAAK LEOS Birthdate: 1965 [id number] continue acute intensive psychiatric treatment. Med changes: DC oral paliperidone. utilize haloperidol and lorazepam prn for agitation. obtain labs in AM- BMP, CBC with diff, lithium level. start clozaril after labs. discharge planning to include family and outpatient providers per patient consent. [facility]. Continued Medication Management: Consider Medication Medications: Current Medications Acetaminophen (Tylenol Tab*) 650 mg PO Q4H PRN PRN Reason: for pain; or Temp >101 F Last Admin: 03/13/18 11:31 Dose: 650 mg Atorvastatin Calcium (Lipitor*) 20 mg PO DAILY [facility] Last Admin: 03/14/18 09:34 Dose: 20 mg Chlorpromazine HCl (Thorazine Tab*) 100 mg PO BEDTIME [facility] Last Admin: 03/13/18 20:16 Dose: 100 mg Diphenhydramine HCl (Benadryl Po*) 50 mg PO Q6H PRN PRN Reason: AGITATION Last Admin: 03/14/18 06:30 Dose: 50 mg Famotidine (Pepcid Tab*) 20 mg PO DAILY [facility] Last Admin: 03/14/18 09:33 Dose: 20 mg Fludrocortisone Acetate (Florinef Tab*) 0.1 mg PO DAILY [facility] Last Admin: 03/14/18 09:34 Dose: 0.1 mg Haloperidol (Haldol Tab*) 5 mg PO Q6H PRN PRN Reason: AGITATION Last Admin: 03/14/18 06:30 Dose: 5 mg Lisinopril (Prinivil Tab*) 20 mg PO DAILY [facility] Last Admin: 03/14/18 09:33 Dose: 20 mg [place] Carbonate ([place] Carbonate Tab*) 1,200 mg PO BEDTIME [facility] Last Admin: 03/13/18 20:17 Dose: 1,200 mg [place] Carbonate ([place] Carbonate Tab*) 600 mg PO DAILY [facility] Last Admin: 03/14/18 09:34 Dose: 600 mg Lorazepam (Ativan Tab(*)) 2 mg PO Q6H PRN PRN Reason: ANXIETY Last Admin: 03/14/18 06:30 Dose: 2 mg Multivitamins (Theragran Tab*) 1 tab PO DAILY [facility] Last Admin: 03/14/18 09:34 Dose: 1 tab - Discharge Plan Discharge Plan: Consider Longer Term Tx
[2018-03-14] MEDS: chlorproMAZINE TAB* 100 MG PO SCH (20:23)
[2018-03-15] MEDS: Atorvastatin* 20 MG TAB PO SCH (10:14)
[2018-03-15] MEDS: Lithium Carbonate TAB* 300 MG PO SCH ×2 (10:14→21:00)
[2018-03-15] MEDS: Vitamin THERAPEUTIC TAB PO SCH (10:14)
[2018-03-15] MEDS: Fludrocortisone Acetate TAB* 0.1 MG PO SCH (10:14)
[2018-03-15] MEDS: Famotidine TAB* 20 MG PO SCH (10:14)
[2018-03-15] MEDS: Lisinopril TAB* 10 MG PO SCH (10:14)
[2018-03-15 12:22] LABS: Hematocrit 40 % (42-52); Hemoglobin 13.3 g/dl (14.0-18.0); Mean Corpuscular HGB Conc 33 g/dl (31-36); Mean Corpuscular Hemoglobin 29 pg (27-31); Mean Corpuscular Volume 86 fL (80-94); Red Blood Count 4.64 10^6/ul (4.00-5.40); Red Cell Distribution Width 15 % (10.5-15); White Blood Count 10.3 10^3/ul (3.5-10.8)
[2018-03-15 12:29] LABS: Lithium 0.81 mmol/L (0.6-1.2)
[2018-03-15 12:35] LABS: EGFR Non-African American 115.1 (>60)
[2018-03-15 13:34] LABS: ABS Basophils 0.1 10^3/ul (0-0.2); ABS Eosinophils 0.2 10^3/ul (0-0.6); ABS Lymphocytes 1.6 10^3/ul (1.0-4.8); ABS Monocytes 0.9 10^3/ul (0-0.8); ABS Neutrophils 7.5 10^3/ul (1.5-7.7); ABS Nucleated RBC 0 10^3/ul; Eosinophil % 2.2 % (0-6); Lymphocyte % 15.5 % (25-47); Mean Platelet Volume 8.6 um3 (7.4-10.4); Nucleated Red Blood Cells % 0.1; Platelet Count 224 10^3/ul (150-450)
[2018-03-15] MEDS: chlorproMAZINE TAB* 100 MG PO SCH (20:59)
[2018-03-15] MEDS: CloZAPine TAB* 25 MG TAB PO SCH (20:59)
--- NOTE | 2018-03-15 21:49 | PN ---
Subjective - Subjective Date of Service: 03/15/18 Service Type: 69695 Hosp care 25 min moderate complexity Subjective: Isaak continues to attend to internal stimuli and make delusional statements. He initially refused morning bloodwork, citing anglican opposition. He later agreed and labs completed. ANC of 7500, clozapine monitoring initiated and he will start clozapine at bedtime. Objective - Appearance Appearance: Obese Dysmorphic Features: Yes Hygiene: Normal Grooming: Fairly Well Kept - Behavior Psychomotor Activities: Normal Exhibits Abnormal Movement: No - Attitude and Relatedness Attitude and Relatedness: Psychotically Related Eye Contact: Fair - Speech Quality: Unpressured Latencies: Normal Quantity: Terse - Mood Patient's Decription of Mood: "Okay" - Affect Observed Affect: Depressed Affect Consistent with: Dysphoria - Thought Process Patient's Thought Process: Disorganized Thought Content: Yes Paranoid Ideation, No Passive Wish, No Suicidal Planning, No Homicidal Ideation - Sensorium Experiencing Hallucinations: Yes Type of Hallucinations: Visual: Yes, Auditory: Yes, Command: No - Level of Consciousness Level of Consciousness: Alert Orientation: Yes Intact, Yes Orientated to Time, Yes Orientated to Place, Yes Orientated to Person - Impulse Control Impulse Control: Impaired - Insight and Judgement Insight and Judgement: Impaired - Group Participation Particating in Group Activities: No - Medication Management Medication Management Adherence: Yes Assessment - Assessment Inpatient DSM-V Dx: F25.0 Clinical Impression: 52yo white male with multiple hospitalizations at [facility] and other [facility]. He drove to [place] impulsively and was psychotically disorganized in the community. Collateral obtained from sisters in [place]. Isaak has a hx of schizoaffective d/o, bipolar type and can be violent when delusional. He is actively psychotic and merits hospitalization for immediate safety and stabilization. Plan - Plan Treatment Plan: Name: ISAAK LEOS Birthdate: 1965 [id number] continue acute intensive psychiatric treatment. start clozapine 12.5mg BID. utilize haloperidol and lorazepam prn for agitation. pending referral to [facility]. Continued Medication Management: Start Medication Medications: Current Medications Acetaminophen (Tylenol Tab*) 650 mg PO Q4H PRN PRN Reason: for pain; or Temp >101 F Last Admin: 03/13/18 11:31 Dose: 650 mg Atorvastatin Calcium (Lipitor*) 20 mg PO DAILY [facility] Last Admin: 03/15/18 10:14 Dose: 20 mg Chlorpromazine HCl (Thorazine Tab*) 100 mg PO BEDTIME [facility] Last Admin: 03/15/18 20:59 Dose: 100 mg Clozapine (Clozapine Tab*) 12.5 mg PO BID [facility] Last Admin: 03/15/18 20:59 Dose: 12.5 mg Diphenhydramine HCl (Benadryl Po*) 50 mg PO Q6H PRN PRN Reason: AGITATION Last Admin: 03/14/18 06:30 Dose: 50 mg Famotidine (Pepcid Tab*) 20 mg PO DAILY [facility] Last Admin: 03/15/18 10:14 Dose: 20 mg Fludrocortisone Acetate (Florinef Tab*) 0.1 mg PO DAILY [facility] Last Admin: 03/15/18 10:14 Dose: 0.1 mg Haloperidol (Haldol Tab*) 5 mg PO Q6H PRN PRN Reason: AGITATION Last Admin: 03/14/18 06:30 Dose: 5 mg Lisinopril (Prinivil Tab*) 20 mg PO DAILY [facility] Last Admin: 03/15/18 10:14 Dose: 20 mg Yoe Carbonate (Yoe Carbonate Tab*) 1,200 mg PO BEDTIME [facility] Last Admin: 03/15/18 21:00 Dose: 1,200 mg [place] Carbonate (Yoe Carbonate Tab*) 600 mg PO DAILY [facility] Last Admin: 03/15/18 10:14 Dose: Not Given Multivitamins (Theragran Tab*) 1 tab PO DAILY [facility] Last Admin: 03/15/18 10:14 Dose: 1 tab - Discharge Plan Discharge Plan: Consider Longer Term Tx
[2018-03-16] MEDS: Fludrocortisone Acetate TAB* 0.1 MG PO SCH (09:20)
[2018-03-16] MEDS: Atorvastatin* 20 MG TAB PO SCH (09:20)
[2018-03-16] MEDS: Famotidine TAB* 20 MG PO SCH (09:20)
[2018-03-16] MEDS: Lithium Carbonate TAB* 300 MG PO SCH ×2 (09:20→20:08)
[2018-03-16] MEDS: Lisinopril TAB* 10 MG PO SCH (09:21)
[2018-03-16] MEDS: Vitamin THERAPEUTIC TAB PO SCH (09:21)
[2018-03-16] MEDS: CloZAPine TAB* 25 MG TAB PO SCH ×2 (09:22→20:07)
[2018-03-16] MEDS: Acetaminophen TAB* 325 MG PO PRN ×2 (11:58→20:09)
[2018-03-16] MEDS: Haloperidol TAB* 5 MG PO PRN (15:49)
[2018-03-16] MEDS: chlorproMAZINE TAB* 100 MG PO SCH (20:07)
[2018-03-17] MEDS: Lithium Carbonate TAB* 300 MG PO SCH ×2 (08:55→20:30)
[2018-03-17] MEDS: Fludrocortisone Acetate TAB* 0.1 MG PO SCH (08:55)
[2018-03-17] MEDS: CloZAPine TAB* 25 MG TAB PO SCH ×2 (08:55→20:30)
[2018-03-17] MEDS: Lisinopril TAB* 10 MG PO SCH (08:56)
[2018-03-17] MEDS: Vitamin THERAPEUTIC TAB PO SCH (08:56)
[2018-03-17] MEDS: Atorvastatin* 20 MG TAB PO SCH (08:56)
[2018-03-17] MEDS: Famotidine TAB* 20 MG PO SCH (08:56)
[2018-03-17] MEDS: Acetaminophen TAB* 325 MG PO PRN (13:00)
[2018-03-17] MEDS: chlorproMAZINE TAB* 100 MG PO SCH (20:30)
[2018-03-18] MEDS: Lithium Carbonate TAB* 300 MG PO SCH ×2 (08:55→21:21)
[2018-03-18] MEDS: Lisinopril TAB* 10 MG PO SCH (08:55)
[2018-03-18] MEDS: Atorvastatin* 20 MG TAB PO SCH (08:55)
[2018-03-18] MEDS: Fludrocortisone Acetate TAB* 0.1 MG PO SCH (08:55)
[2018-03-18] MEDS: Vitamin THERAPEUTIC TAB PO SCH (08:55)
[2018-03-18] MEDS: Famotidine TAB* 20 MG PO SCH (08:55)
[2018-03-18] MEDS: CloZAPine TAB* 25 MG TAB PO SCH ×2 (08:55→21:21)
--- NOTE | 2018-03-18 12:30 | PN ---
Subjective - Subjective Date of Service: 03/18/18 Service Type: 12410 Hosp care 35 min high complexity Subjective: Patient did not give clearance to [facility] for transfer to [facility]. Administrative meeting held today. Patient noted to be calm with tangential and delusional comments. He states his name is [id number], which is also a satellite. He introduced himself as the current president's great great grandfather then smiles sheepishly. 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 Objective - Appearance Appearance: Obese Dysmorphic Features: No Hygiene: Normal Grooming: Disheveled - Behavior Psychomotor Activities: Normal Exhibits Abnormal Movement: No - Attitude and Relatedness Attitude and Relatedness: Psychotically Related Eye Contact: Good - Speech Quality: Pressured Latencies: Short Quantity: Copious - Mood Patient's Decription of Mood: "Good" - Affect Observed Affect: Expansive Affect Consistent with: Euthymia - Thought Process Patient's Thought Process: Disorganized, Tangential Thought Content: Yes Paranoid Ideation, No Passive Wish, No Suicidal Planning, No Homicidal Ideation - Sensorium Experiencing Hallucinations: Yes Type of Hallucinations: Visual: Yes, Auditory: Yes, Command: Yes - Level of Consciousness Level of Consciousness: Alert Orientation: Yes Intact, Yes Orientated to Time, Yes Orientated to Place, Yes Orientated to Person - Impulse Control Impulse Control: Impaired - Insight and Judgement Insight and Judgement: Impaired - Group Participation Particating in Group Activities: No - Medication Management Medication Management Adherence: Yes Assessment - Assessment Merits Inpatient Hospitalization: For Immediate Safety, For Stabilization, For Ongoing Evaluation Inpatient DSM-V Dx: F25.0 Clinical Impression: 52yo white male with multiple hospitalizations at [facility] and other [facility]. He drove to [place] impulsively and was psychotically disorganized in the community. Collateral obtained from sisters in [place]. Isaak has a hx of schizoaffective d/o, bipolar type and can be violent when delusional. He is actively psychotic and merits hospitalization for immediate safety and stabilization during medication changes. Referral to [facility] pending. Plan - Plan Treatment Plan: Name: ISAAK LEOS Birthdate: 1965 [id number] continue acute intensive psychiatric treatment. titrate clozapine 25mg/day. utilize haloperidol and lorazepam prn for agitation. repeat CBC weekly per clozapine protocol. pending referral to [facility]. Continued Medication Management: Start Medication Medications: Current Medications Acetaminophen (Tylenol Tab*) 650 mg PO Q4H PRN PRN Reason: for pain; or Temp >101 F Last Admin: 03/17/18 13:00 Dose: 650 mg Atorvastatin Calcium (Lipitor*) 20 mg PO DAILY [facility] Last Admin: 03/18/18 08:55 Dose: 20 mg Chlorpromazine HCl (Thorazine Tab*) 100 mg PO BEDTIME [facility] Last Admin: 03/17/18 20:30 Dose: 100 mg Clozapine (Clozapine Tab*) 0 mg PO DAILY [facility]; Taper Stop: 03/21/18 20:59 Diphenhydramine HCl (Benadryl Po*) 50 mg PO Q6H PRN PRN Reason: AGITATION Last Admin: 03/14/18 06:30 Dose: 50 mg Famotidine (Pepcid Tab*) 20 mg PO DAILY [facility] Last Admin: 03/18/18 08:55 Dose: 20 mg Fludrocortisone Acetate (Florinef Tab*) 0.1 mg PO DAILY [facility] Last Admin: 03/18/18 08:55 Dose: 0.1 mg Haloperidol (Haldol Tab*) 5 mg PO Q6H PRN PRN Reason: AGITATION Last Admin: 03/16/18 15:49 Dose: 5 mg Lisinopril (Prinivil Tab*) 20 mg PO DAILY [facility] Last Admin: 03/18/18 08:55 Dose: 20 mg [place] Carbonate ([place] Carbonate Tab*) 1,200 mg PO BEDTIME [facility] Last Admin: 03/17/18 20:30 Dose: 1,200 mg [place] Carbonate ([place] Carbonate Tab*) 600 mg PO DAILY [facility] Last Admin: 03/18/18 08:55 Dose: 600 mg Lorazepam (Ativan Tab(*)) 2 mg PO Q6H PRN PRN Reason: ANXIETY Last Admin: 03/14/18 06:30 Dose: 2 mg Multivitamins (Theragran Tab*) 1 tab PO DAILY [facility] Last Admin: 03/18/18 08:55 Dose: 1 tab - Discharge Plan Discharge Plan: Consider Longer Term Tx
[2018-03-18] MEDS: chlorproMAZINE TAB* 100 MG PO SCH (21:22)
[2018-03-19] MEDS: Lisinopril TAB* 10 MG PO SCH (08:06)
[2018-03-19] MEDS: Lithium Carbonate TAB* 300 MG PO SCH ×2 (08:06→20:44)
[2018-03-19] MEDS: Vitamin THERAPEUTIC TAB PO SCH (08:06)
[2018-03-19] MEDS: Famotidine TAB* 20 MG PO SCH (08:07)
[2018-03-19] MEDS: Atorvastatin* 20 MG TAB PO SCH (08:07)
[2018-03-19] MEDS: CloZAPine TAB* 25 MG TAB PO SCH ×2 (08:07→20:43)
[2018-03-19] MEDS: Fludrocortisone Acetate TAB* 0.1 MG PO SCH (08:08)
[2018-03-19] MEDS: chlorproMAZINE TAB* 100 MG PO SCH (20:43)
[2018-03-20] MEDS: Lithium Carbonate TAB* 300 MG PO SCH ×2 (08:28→21:55)
[2018-03-20] MEDS: Vitamin THERAPEUTIC TAB PO SCH (08:29)
[2018-03-20] MEDS: CloZAPine TAB* 25 MG TAB PO SCH ×2 (08:29→21:53)
[2018-03-20] MEDS: Fludrocortisone Acetate TAB* 0.1 MG PO SCH (08:29)
[2018-03-20] MEDS: Famotidine TAB* 20 MG PO SCH (08:29)
[2018-03-20] MEDS: Atorvastatin* 20 MG TAB PO SCH (08:30)
[2018-03-20] MEDS: Lisinopril TAB* 10 MG PO SCH (08:30)
[2018-03-20] MEDS: Haloperidol TAB* 5 MG PO PRN (15:16)
[2018-03-20] MEDS: diPHENhydraMINE PO* 50 MG PO PRN (15:17)
[2018-03-20] MEDS: LORazepam TAB(*) 1 MG PO PRN (15:17)
[2018-03-20] MEDS: chlorproMAZINE TAB* 100 MG PO SCH (21:51)
[2018-03-21] MEDS: Fludrocortisone Acetate TAB* 0.1 MG PO SCH (09:20)
[2018-03-21] MEDS: Vitamin THERAPEUTIC TAB PO SCH (09:20)
[2018-03-21] MEDS: Lisinopril TAB* 10 MG PO SCH (09:20)
[2018-03-21] MEDS: Atorvastatin* 20 MG TAB PO SCH (09:21)
[2018-03-21] MEDS: Lithium Carbonate TAB* 300 MG PO SCH ×2 (09:21→20:55)
[2018-03-21] MEDS: Famotidine TAB* 20 MG PO SCH (09:21)
[2018-03-21] MEDS: CloZAPine TAB* 25 MG TAB PO SCH (09:22)
[2018-03-21] MEDS: chlorproMAZINE TAB* 100 MG PO SCH (20:55)
[2018-03-21] MEDS: Docusate CAP* 100 MG PO SCH (20:57)
[2018-03-22] MEDS: Lithium Carbonate TAB* 300 MG PO SCH ×2 (08:35→21:50)
[2018-03-22] MEDS: Vitamin THERAPEUTIC TAB PO SCH (08:35)
[2018-03-22] MEDS: Docusate CAP* 100 MG PO SCH ×2 (08:36→21:49)
[2018-03-22] MEDS: Famotidine TAB* 20 MG PO SCH (08:36)
[2018-03-22] MEDS: Atorvastatin* 20 MG TAB PO SCH (08:36)
[2018-03-22] MEDS: Fludrocortisone Acetate TAB* 0.1 MG PO SCH (08:36)
[2018-03-22] MEDS: Lisinopril TAB* 10 MG PO SCH (08:36)
--- NOTE | 2018-03-22 08:44 | PN ---
Subjective - Subjective Date of Service: 03/21/18 Service Type: 20740 Hosp care 25 min moderate complexity Subjective: Patient is responding to internal stimuli and expresses delusional thought content. He tells me that he is "going home today." He goes on to say that my supervising psychiatrist is his father and that he spoke with him today. In reality, this person is not here and younger than Isaak. Patient denies pain or discomfort and reports regular BMs. Objective - Appearance Appearance: Obese Dysmorphic Features: No Hygiene: Dirty Grooming: Disheveled - Behavior Psychomotor Activities: Normal Exhibits Abnormal Movement: No - Attitude and Relatedness Attitude and Relatedness: Psychotically Related Eye Contact: Good - Speech Quality: Unpressured Latencies: Normal Quantity: Copious - Mood Patient's Decription of Mood: "Good" - Affect Observed Affect: Expansive Affect Consistent with: Euphoria - Thought Process Patient's Thought Process: Loose Associations, Tangential Thought Content: Yes Paranoid Ideation, No Passive Wish, No Suicidal Planning, No Homicidal Ideation - Sensorium Experiencing Hallucinations: Yes Type of Hallucinations: Visual: No, Auditory: Yes, Command: Yes - Level of Consciousness Level of Consciousness: Alert Orientation: Yes Intact, Yes Orientated to Time, Yes Orientated to Place, Yes Orientated to Person - Impulse Control Impulse Control: Impaired - Insight and Judgement Insight and Judgement: Impaired - Group Participation Particating in Group Activities: No - Medication Management Medication Management Adherence: Yes Assessment - Assessment Merits Inpatient Hospitalization: For Immediate Safety, For Stabilization Inpatient DSM-V Dx: F25.0 Clinical Impression: 52yo white male with multiple hospitalizations at [facility] and other [facility]. He drove to [place] impulsively and was psychotically disorganized in the community. Collateral obtained from sisters in [place]. Isaak has a hx of schizoaffective d/o, bipolar type and can be violent when delusional. He is actively psychotic and merits hospitalization for immediate safety and stabilization during medication changes. Referral to [facility] pending. Plan - Plan Treatment Plan: Name: ISAAK LEOS Birthdate: 1965 [id number] continue acute intensive psychiatric treatment. titrate clozapine 25mg/day. utilize haloperidol and lorazepam prn for agitation. repeat CBC weekly per clozapine protocol. pending referral to [facility]. Continued Medication Management: Start Medication Medications: Current Medications Acetaminophen (Tylenol Tab*) 650 mg PO Q4H PRN PRN Reason: for pain; or Temp >101 F Last Admin: 03/17/18 13:00 Dose: 650 mg Atorvastatin Calcium (Lipitor*) 20 mg PO DAILY [facility] Last Admin: 03/21/18 09:21 Dose: 20 mg Chlorpromazine HCl (Thorazine Tab*) 100 mg PO BEDTIME [facility] Last Admin: 03/21/18 20:55 Dose: 100 mg Diphenhydramine HCl (Benadryl Po*) 50 mg PO Q6H PRN PRN Reason: AGITATION Last Admin: 03/20/18 15:17 Dose: 50 mg Docusate Sodium (Colace Cap*) 100 mg PO BID [facility] Last Admin: 03/21/18 20:57 Dose: 100 mg Famotidine (Pepcid Tab*) 20 mg PO DAILY [facility] Last Admin: 03/21/18 09:21 Dose: 20 mg Fludrocortisone Acetate (Florinef Tab*) 0.1 mg PO DAILY [facility] Last Admin: 03/21/18 09:20 Dose: 0.1 mg Haloperidol (Haldol Tab*) 5 mg PO Q6H PRN PRN Reason: AGITATION Last Admin: 03/20/18 15:16 Dose: 5 mg Lisinopril (Prinivil Tab*) 20 mg PO DAILY [facility] Last Admin: 03/21/18 09:20 Dose: 20 mg [place] Carbonate ([place] Carbonate Tab*) 1,200 mg PO BEDTIME [facility] Last Admin: 03/21/18 20:55 Dose: 1,200 mg [place] Carbonate ([place] Carbonate Tab*) 600 mg PO DAILY [facility] Last Admin: 03/21/18 09:21 Dose: 600 mg Lorazepam (Ativan Tab(*)) 2 mg PO Q6H PRN PRN Reason: ANXIETY Last Admin: 03/20/18 15:17 Dose: 2 mg Multivitamins (Theragran Tab*) 1 tab PO DAILY [facility] Last Admin: 03/21/18 09:20 Dose: 1 tab - Discharge Plan Discharge Plan: Consider Longer Term Tx
[2018-03-22 19:23] LABS: ABS Basophils 0.1 10^3/ul (0-0.2); ABS Eosinophils 0.3 10^3/ul (0-0.6); ABS Lymphocytes 1.9 10^3/ul (1.0-4.8); ABS Neutrophils 6.8 10^3/ul (1.5-7.7); ABS Nucleated RBC 0 10^3/ul; Eosinophil % 3.4 % (0-6); Hematocrit 41 % (42-52); Hemoglobin 13.7 g/dl (14.0-18.0); Lymphocyte % 19.2 % (25-47); Mean Corpuscular HGB Conc 34 g/dl (31-36); Mean Corpuscular Hemoglobin 29 pg (27-31); Mean Corpuscular Volume 87 fL (80-94); Mean Platelet Volume 7.6 um3 (7.4-10.4); Nucleated Red Blood Cells % 0; Platelet Count 232 10^3/ul (150-450); Red Blood Count 4.73 10^6/ul (4.00-5.40); Red Cell Distribution Width 15 % (10.5-15); White Blood Count 10.1 10^3/ul (3.5-10.8)
[2018-03-22] MEDS ORDERED: CloZAPine TAB* 100 MG TAB PO SCH (21:00)
[2018-03-22] MEDS: chlorproMAZINE TAB* 100 MG PO SCH (21:50)
[2018-03-22] MEDS: CloZAPine TAB* 100 MG TAB PO SCH (21:50)
[2018-03-23] MEDS: CloZAPine TAB* 100 MG TAB PO SCH ×2 (09:36→22:23)
[2018-03-23] MEDS: Fludrocortisone Acetate TAB* 0.1 MG PO SCH (09:36)
[2018-03-23] MEDS: Docusate CAP* 100 MG PO SCH ×2 (09:36→22:23)
[2018-03-23] MEDS: Famotidine TAB* 20 MG PO SCH (09:36)
[2018-03-23] MEDS: Atorvastatin* 20 MG TAB PO SCH (09:36)
[2018-03-23] MEDS: Lisinopril TAB* 10 MG PO SCH (09:37)
[2018-03-23] MEDS: Lithium Carbonate TAB* 300 MG PO SCH ×2 (09:37→22:23)
[2018-03-23] MEDS: Vitamin THERAPEUTIC TAB PO SCH (09:37)
[2018-03-23] MEDS: chlorproMAZINE TAB* 100 MG PO SCH (22:23)
[2018-03-24] MEDS: Acetaminophen TAB* 325 MG PO PRN ×2 (05:27→21:09)
[2018-03-24] MEDS: Lithium Carbonate TAB* 300 MG PO SCH ×2 (09:26→21:11)
[2018-03-24] MEDS: Famotidine TAB* 20 MG PO SCH (09:26)
[2018-03-24] MEDS: Atorvastatin* 20 MG TAB PO SCH (09:27)
[2018-03-24] MEDS: Vitamin THERAPEUTIC TAB PO SCH (09:27)
[2018-03-24] MEDS: Lisinopril TAB* 10 MG PO SCH (09:27)
[2018-03-24] MEDS: Docusate CAP* 100 MG PO SCH ×2 (09:27→21:11)
[2018-03-24] MEDS: Fludrocortisone Acetate TAB* 0.1 MG PO SCH (09:28)
[2018-03-24] MEDS: CloZAPine TAB* 100 MG TAB PO SCH (09:28)
--- NOTE | 2018-03-24 10:18 | PN ---
Subjective - Subjective Date of Service: 03/24/18 Service Type: 32025 Hosp care 15 min low complexity Subjective: Patient is observed to talk loudly to himself in his room and respond to internal stimuli. He attempts to "blend in" with groups of staff when they are leaving the unit but is redirectable. Patient initially refused weekly blood draw, but complied with nursing presence. He is tolerating clozapine titration thus far. Objective - Appearance Appearance: Obese Dysmorphic Features: No Hygiene: Dirty Grooming: Disheveled - Behavior Psychomotor Activities: Normal Exhibits Abnormal Movement: No - Attitude and Relatedness Attitude and Relatedness: Psychotically Related Eye Contact: Poor - Speech Quality: Pressured Latencies: Short Quantity: Copious - Mood Patient's Decription of Mood: "Good" - Affect Observed Affect: Expansive Affect Consistent with: Euphoria - Thought Process Patient's Thought Process: Disorganized, Loose Associations, Tangential Thought Content: Yes Paranoid Ideation, No Passive Wish, No Suicidal Planning, No Homicidal Ideation - Sensorium Experiencing Hallucinations: Yes Type of Hallucinations: Visual: No, Auditory: Yes, Command: Yes - Level of Consciousness Level of Consciousness: Alert Orientation: Yes Intact, Yes Orientated to Time, Yes Orientated to Place, Yes Orientated to Person - Impulse Control Impulse Control: Impaired - Insight and Judgement Insight and Judgement: Impaired - Group Participation Particating in Group Activities: No - Medication Management Medication Management Adherence: Yes Assessment - Assessment Merits Inpatient Hospitalization: For Immediate Safety, For Stabilization Inpatient DSM-V Dx: F25.0 Clinical Impression: 52yo white male with multiple hospitalizations at [facility] and other [facility]. He drove to [place] impulsively and was psychotically disorganized in the community. Collateral obtained from sisters in [place]. Isaak has a hx of schizoaffective d/o, bipolar type and can be violent when delusional. He is actively psychotic and merits hospitalization for immediate safety and stabilization during medication changes. Referral to [facility] pending. Plan - Plan Treatment Plan: Name: ISAAK LEOS Birthdate: 1965 [id number] continue acute intensive psychiatric treatment. titrate clozapine 25mg/day. utilize haloperidol and lorazepam prn for agitation. repeat CBC weekly per clozapine protocol. pending referral to [facility]. Continued Medication Management: Start Medication Medications: Current Medications Acetaminophen (Tylenol Tab*) 650 mg PO Q4H PRN PRN Reason: for pain; or Temp >101 F Last Admin: 03/24/18 05:27 Dose: 650 mg Atorvastatin Calcium (Lipitor*) 20 mg PO DAILY [facility] Last Admin: 03/24/18 09:27 Dose: 20 mg Chlorpromazine HCl (Thorazine Tab*) 100 mg PO BEDTIME [facility] Last Admin: 03/23/18 22:23 Dose: 100 mg Clozapine (Clozapine Tab*) 100 mg PO BID [facility] Stop: 03/24/18 20:59 Last Admin: 03/24/18 09:28 Dose: 100 mg Clozapine (Clozapine Tab*) 125 mg PO BID [facility] Stop: 03/25/18 20:59 Clozapine (Clozapine Tab*) 150 mg PO BID [facility] Stop: 03/30/18 20:59 Diphenhydramine HCl (Benadryl Po*) 50 mg PO Q6H PRN PRN Reason: AGITATION Last Admin: 03/20/18 15:17 Dose: 50 mg Docusate Sodium (Colace Cap*) 100 mg PO BID [facility] Last Admin: 03/24/18 09:27 Dose: 100 mg Famotidine (Pepcid Tab*) 20 mg PO DAILY [facility] Last Admin: 03/24/18 09:26 Dose: 20 mg Fludrocortisone Acetate (Florinef Tab*) 0.1 mg PO DAILY [facility] Last Admin: 03/24/18 09:28 Dose: 0.1 mg Haloperidol (Haldol Tab*) 5 mg PO Q6H PRN PRN Reason: AGITATION Last Admin: 03/20/18 15:16 Dose: 5 mg Lisinopril (Prinivil Tab*) 20 mg PO DAILY [facility] Last Admin: 03/24/18 09:27 Dose: 20 mg [place] Carbonate ([place] Carbonate Tab*) 1,200 mg PO BEDTIME [facility] Last Admin: 03/23/18 22:23 Dose: 1,200 mg [place] Carbonate ([place] Carbonate Tab*) 600 mg PO DAILY [facility] Last Admin: 03/24/18 09:26 Dose: 600 mg Lorazepam (Ativan Tab(*)) 2 mg PO Q6H PRN PRN Reason: ANXIETY Last Admin: 03/20/18 15:17 Dose: 2 mg Multivitamins (Theragran Tab*) 1 tab PO DAILY [facility] Last Admin: 03/24/18 09:27 Dose: 1 tab - Discharge Plan Discharge Plan: Consider Longer Term Tx
[2018-03-24] MEDS: CloZAPine TAB* 25 MG TAB PO SCH (21:10)
[2018-03-24] MEDS: chlorproMAZINE TAB* 100 MG PO SCH (21:10)
[2018-03-25] MEDS: Acetaminophen TAB* 325 MG PO PRN (04:58)
[2018-03-25] MEDS: Famotidine TAB* 20 MG PO SCH (09:12)
[2018-03-25] MEDS: Atorvastatin* 20 MG TAB PO SCH (09:12)
[2018-03-25] MEDS: Fludrocortisone Acetate TAB* 0.1 MG PO SCH (09:12)
[2018-03-25] MEDS: Docusate CAP* 100 MG PO SCH ×2 (09:12→21:22)
[2018-03-25] MEDS: Lisinopril TAB* 10 MG PO SCH (09:12)
[2018-03-25] MEDS: CloZAPine TAB* 25 MG TAB PO SCH (09:12)
[2018-03-25] MEDS: Lithium Carbonate TAB* 300 MG PO SCH ×2 (09:13→21:23)
[2018-03-25] MEDS: Vitamin THERAPEUTIC TAB PO SCH (09:13)
--- NOTE | 2018-03-25 10:43 | PN ---
Subjective - Subjective Service Type: 55518 Hosp care 15 min low complexity Subjective: patient continues to present as psychotically related. He is noted to speak jibberish into phone miller head without dialing. Objective - Appearance Appearance: Obese Dysmorphic Features: Yes Hygiene: Dirty Grooming: Disheveled - Behavior Psychomotor Activities: Normal Exhibits Abnormal Movement: No - Attitude and Relatedness Attitude and Relatedness: Psychotically Related Eye Contact: Fair - Speech Quality: Pressured Latencies: Short Quantity: Terse - Mood Patient's Decription of Mood: "Good" Assessment - Assessment Inpatient DSM-V Dx: F25.0 Clinical Impression: 52yo white male with multiple hospitalizations at [facility] and other [facility]. He drove to [place] impulsively and was psychotically disorganized in the community. Collateral obtained from sisters in [place]. Isaak has a hx of schizoaffective d/o, bipolar type and can be violent when delusional. He is actively psychotic and merits hospitalization for immediate safety and stabilization during medication changes. Referral to [facility] pending. Plan - Plan Treatment Plan: Name: ISAAK LEOS Birthdate: 1965 [id number] continue acute intensive psychiatric treatment. titrate clozapine 25mg/day. utilize haloperidol and lorazepam prn for agitation. repeat CBC weekly per clozapine protocol. pending referral to [facility]. Medications: Current Medications Acetaminophen (Tylenol Tab*) 650 mg PO Q4H PRN PRN Reason: for pain; or Temp >101 F Last Admin: 03/25/18 04:58 Dose: 650 mg Atorvastatin Calcium (Lipitor*) 20 mg PO DAILY [facility] Last Admin: 03/25/18 09:12 Dose: 20 mg Chlorpromazine HCl (Thorazine Tab*) 100 mg PO BEDTIME [facility] Last Admin: 03/24/18 21:10 Dose: 100 mg Clozapine (Clozapine Tab*) 125 mg PO BID [facility] Stop: 03/25/18 20:59 Last Admin: 03/25/18 09:12 Dose: 125 mg Clozapine (Clozapine Tab*) 150 mg PO BID [facility] Stop: 03/30/18 20:59 Diphenhydramine HCl (Benadryl Po*) 50 mg PO Q6H PRN PRN Reason: AGITATION Last Admin: 03/20/18 15:17 Dose: 50 mg Docusate Sodium (Colace Cap*) 100 mg PO BID [facility] Last Admin: 03/25/18 09:12 Dose: 100 mg Famotidine (Pepcid Tab*) 20 mg PO DAILY [facility] Last Admin: 03/25/18 09:12 Dose: 20 mg Fludrocortisone Acetate (Florinef Tab*) 0.1 mg PO DAILY [facility] Last Admin: 03/25/18 09:12 Dose: 0.1 mg Haloperidol (Haldol Tab*) 5 mg PO Q6H PRN PRN Reason: AGITATION Last Admin: 03/20/18 15:16 Dose: 5 mg Lisinopril (Prinivil Tab*) 20 mg PO DAILY [facility] Last Admin: 03/25/18 09:12 Dose: 20 mg [place] Carbonate ([place] Carbonate Tab*) 1,200 mg PO BEDTIME [facility] Last Admin: 03/24/18 21:11 Dose: 1,200 mg [place] Carbonate ([place] Carbonate Tab*) 600 mg PO DAILY [facility] Last Admin: 03/25/18 09:13 Dose: 600 mg Lorazepam (Ativan Tab(*)) 2 mg PO Q6H PRN PRN Reason: ANXIETY Last Admin: 03/20/18 15:17 Dose: 2 mg Multivitamins (Theragran Tab*) 1 tab PO DAILY [facility] Last Admin: 03/25/18 09:13 Dose: 1 tab
[2018-03-25] MEDS: CloZAPine TAB* 100 MG TAB PO SCH (21:21)
[2018-03-25] MEDS: chlorproMAZINE TAB* 100 MG PO SCH (21:21)
[2018-03-26] MEDS: Lithium Carbonate TAB* 300 MG PO SCH ×2 (10:06→22:05)
[2018-03-26] MEDS: Lisinopril TAB* 10 MG PO SCH (10:07)
[2018-03-26] MEDS: Famotidine TAB* 20 MG PO SCH (10:07)
[2018-03-26] MEDS: Fludrocortisone Acetate TAB* 0.1 MG PO SCH (10:07)
[2018-03-26] MEDS: Atorvastatin* 20 MG TAB PO SCH (10:07)
[2018-03-26] MEDS: CloZAPine TAB* 100 MG TAB PO SCH ×2 (10:08→22:04)
[2018-03-26] MEDS: Docusate CAP* 100 MG PO SCH ×2 (10:08→22:03)
[2018-03-26] MEDS: Vitamin THERAPEUTIC TAB PO SCH (10:08)
[2018-03-26] MEDS: chlorproMAZINE TAB* 100 MG PO SCH (22:04)
[2018-03-27] MEDS: Famotidine TAB* 20 MG PO SCH (10:14)
[2018-03-27] MEDS: Atorvastatin* 20 MG TAB PO SCH (10:14)
[2018-03-27] MEDS: Fludrocortisone Acetate TAB* 0.1 MG PO SCH (10:15)
[2018-03-27] MEDS: Lithium Carbonate TAB* 300 MG PO SCH ×2 (10:15→20:55)
[2018-03-27] MEDS: Docusate CAP* 100 MG PO SCH ×2 (10:15→20:55)
[2018-03-27] MEDS: Vitamin THERAPEUTIC TAB PO SCH (10:15)
[2018-03-27] MEDS: Lisinopril TAB* 10 MG PO SCH (10:15)
[2018-03-27] MEDS: CloZAPine TAB* 100 MG TAB PO SCH ×2 (10:16→20:54)
[2018-03-27] MEDS: chlorproMAZINE TAB* 100 MG PO SCH (20:55)
[2018-03-28] MEDS: Vitamin THERAPEUTIC TAB PO SCH (09:32)
[2018-03-28] MEDS: CloZAPine TAB* 100 MG TAB PO SCH (09:33)
[2018-03-28] MEDS: Lithium Carbonate TAB* 300 MG PO SCH ×2 (09:34→21:21)
[2018-03-28] MEDS: Famotidine TAB* 20 MG PO SCH (09:34)
[2018-03-28] MEDS: Atorvastatin* 20 MG TAB PO SCH (09:34)
[2018-03-28] MEDS: Lisinopril TAB* 10 MG PO SCH (09:35)
[2018-03-28] MEDS: Docusate CAP* 100 MG PO SCH ×2 (09:35→21:21)
[2018-03-28] MEDS: Fludrocortisone Acetate TAB* 0.1 MG PO SCH (09:35)
--- NOTE | 2018-03-28 10:46 | PN ---
Subjective - Subjective Service Type: 85552 Hosp care 25 min moderate complexity Objective - Appearance Appearance: Obese Dysmorphic Features: No Hygiene: Dirty Grooming: Disheveled - Behavior Psychomotor Activities: Normal Exhibits Abnormal Movement: No - Attitude and Relatedness Attitude and Relatedness: Psychotically Related Eye Contact: Poor - Speech Quality: Unpressured Latencies: Short Quantity: Copious - Mood Patient's Decription of Mood: "I'm all set" - Affect Observed Affect: Expansive Affect Consistent with: Euphoria - Thought Process Patient's Thought Process: Disorganized Thought Content: Yes Paranoid Ideation, No Passive Wish, No Suicidal Planning, No Homicidal Ideation - Sensorium Experiencing Hallucinations: Yes Type of Hallucinations: Visual: Yes, Auditory: Yes, Command: Yes - Level of Consciousness Level of Consciousness: Alert Orientation: Yes Intact, Yes Orientated to Time, Yes Orientated to Place, Yes Orientated to Person - Impulse Control Impulse Control: Impaired - Insight and Judgement Insight and Judgement: Impaired - Group Participation Particating in Group Activities: No - Medication Management Medication Management Adherence: Yes Assessment - Assessment Inpatient DSM-V Dx: F25.0 Clinical Impression: 52yo white male with multiple hospitalizations at [facility] and other [facility]. He drove to [place] impulsively and was psychotically disorganized in the community. Collateral obtained from sisters in [place]. Isaak has a hx of schizoaffective d/o, bipolar type and can be violent when delusional. He is actively psychotic and merits hospitalization for immediate safety and stabilization during medication changes. Referral to [facility] pending. Plan - Plan Treatment Plan: Name: ISAAK LEOS Birthdate: 1965 [id number] continue acute intensive psychiatric treatment. continue clozapine 300mg/day. utilize haloperidol and lorazepam prn for agitation. repeat CBC weekly per clozapine protocol. pending referral to [facility]. Continued Medication Management: Start Medication Medications: Current Medications Acetaminophen (Tylenol Tab*) 650 mg PO Q4H PRN PRN Reason: for pain; or Temp >101 F Last Admin: 03/25/18 04:58 Dose: 650 mg Atorvastatin Calcium (Lipitor*) 20 mg PO DAILY [facility] Last Admin: 03/28/18 09:34 Dose: 20 mg Chlorpromazine HCl (Thorazine Tab*) 100 mg PO BEDTIME [facility] Last Admin: 03/27/18 20:55 Dose: 100 mg Diphenhydramine HCl (Benadryl Po*) 50 mg PO Q6H PRN PRN Reason: AGITATION Last Admin: 03/20/18 15:17 Dose: 50 mg Docusate Sodium (Colace Cap*) 100 mg PO BID [facility] Last Admin: 03/28/18 09:35 Dose: 100 mg Famotidine (Pepcid Tab*) 20 mg PO DAILY [facility] Last Admin: 03/28/18 09:34 Dose: 20 mg Fludrocortisone Acetate (Florinef Tab*) 0.1 mg PO DAILY [facility] Last Admin: 03/28/18 09:35 Dose: 0.1 mg Haloperidol (Haldol Tab*) 5 mg PO Q6H PRN PRN Reason: AGITATION Last Admin: 03/20/18 15:16 Dose: 5 mg Lisinopril (Prinivil Tab*) 20 mg PO DAILY [facility] Last Admin: 03/28/18 09:35 Dose: 20 mg [place] Carbonate ([place] Carbonate Tab*) 1,200 mg PO BEDTIME [facility] Last Admin: 03/27/18 20:55 Dose: 1,200 mg [place] Carbonate ([place] Carbonate Tab*) 600 mg PO DAILY [facility] Last Admin: 03/28/18 09:34 Dose: 600 mg Lorazepam (Ativan Tab(*)) 2 mg PO Q6H PRN PRN Reason: ANXIETY Last Admin: 03/20/18 15:17 Dose: 2 mg Multivitamins (Theragran Tab*) 1 tab PO DAILY [facility] Last Admin: 03/28/18 09:32 Dose: 1 tab - Discharge Plan Discharge Plan: Consider Longer Term Tx
--- NOTE | 2018-03-28 11:22 | PN ---
Subjective - Subjective Date of Service: 03/28/18 Service Type: 65070 Hosp care 15 min low complexity Subjective: Patient tolerating clozapine titration. No abnormal psychomotor activity, denies constipation and reports soft BMs. He is observed responding to internal stimuli and telling various employees that he is "being discharged today." Patient notified that he is awaiting bed availability at either [facility] or [facility]. Objective - Appearance Appearance: Obese Dysmorphic Features: No Hygiene: Dirty Grooming: Disheveled - Behavior Psychomotor Activities: Normal Exhibits Abnormal Movement: No - Attitude and Relatedness Attitude and Relatedness: Psychotically Related Eye Contact: Fair - Speech Quality: Unpressured Latencies: Short Quantity: Terse - Mood Patient's Decription of Mood: "i'm all set" - Affect Affect Consistent with: Euphoria - Thought Process Patient's Thought Process: Disorganized, Tangential Thought Content: Yes Paranoid Ideation - Sensorium Experiencing Hallucinations: Yes Type of Hallucinations: Visual: No, Auditory: Yes, Command: No - Level of Consciousness Level of Consciousness: Alert Orientation: Yes Intact, Yes Orientated to Time, Yes Orientated to Place, Yes Orientated to Person - Impulse Control Impulse Control: Impaired - Insight and Judgement Insight and Judgement: Impaired - Group Participation Particating in Group Activities: No - Medication Management Medication Management Adherence: Yes Assessment - Assessment Merits Inpatient Hospitalization: For Immediate Safety, For Stabilization, Consolidate Improvements Inpatient DSM-V Dx: F25.0 Clinical Impression: 52yo white male with multiple hospitalizations at [facility] and other [facility]. He drove to [place] impulsively and was psychotically disorganized in the community. Collateral obtained from sisters in [place]. Isaak has a hx of schizoaffective d/o, bipolar type and can be violent when delusional. He is actively psychotic and merits hospitalization for immediate safety and stabilization during medication changes. Referral to [facility] pending. Plan - Plan Treatment Plan: Name: ISAAK LEOS Birthdate: 1965 [id number] continue acute intensive psychiatric treatment. continue clozapine 300mg/day. utilize haloperidol and lorazepam prn for agitation. repeat CBC weekly per clozapine protocol. pending referral to [facility]. Continued Medication Management: Start Medication Medications: Current Medications Acetaminophen (Tylenol Tab*) 650 mg PO Q4H PRN PRN Reason: for pain; or Temp >101 F Last Admin: 03/25/18 04:58 Dose: 650 mg Atorvastatin Calcium (Lipitor*) 20 mg PO DAILY [facility] Last Admin: 03/28/18 09:34 Dose: 20 mg Chlorpromazine HCl (Thorazine Tab*) 100 mg PO BEDTIME [facility] Last Admin: 03/27/18 20:55 Dose: 100 mg Clozapine (Clozapine Tab*) 100 mg PO DAILY [facility] Clozapine (Clozapine Tab*) 100 mg PO BEDTIME [facility] Diphenhydramine HCl (Benadryl Po*) 50 mg PO Q6H PRN PRN Reason: AGITATION Last Admin: 03/20/18 15:17 Dose: 50 mg Docusate Sodium (Colace Cap*) 100 mg PO BID [facility] Last Admin: 03/28/18 09:35 Dose: 100 mg Famotidine (Pepcid Tab*) 20 mg PO DAILY [facility] Last Admin: 03/28/18 09:34 Dose: 20 mg Fludrocortisone Acetate (Florinef Tab*) 0.1 mg PO DAILY [facility] Last Admin: 03/28/18 09:35 Dose: 0.1 mg Haloperidol (Haldol Tab*) 5 mg PO Q6H PRN PRN Reason: AGITATION Last Admin: 03/20/18 15:16 Dose: 5 mg Lisinopril (Prinivil Tab*) 20 mg PO DAILY [facility] Last Admin: 03/28/18 09:35 Dose: 20 mg [place] Carbonate ([place] Carbonate Tab*) 1,200 mg PO BEDTIME [facility] Last Admin: 03/27/18 20:55 Dose: 1,200 mg [place] Carbonate ([place] Carbonate Tab*) 600 mg PO DAILY [facility] Last Admin: 03/28/18 09:34 Dose: 600 mg Lorazepam (Ativan Tab(*)) 2 mg PO Q6H PRN PRN Reason: ANXIETY Last Admin: 03/20/18 15:17 Dose: 2 mg Multivitamins (Theragran Tab*) 1 tab PO DAILY [facility] Last Admin: 03/28/18 09:32 Dose: 1 tab - Discharge Plan Discharge Plan: Consider Longer Term Tx
[2018-03-28] MEDS: chlorproMAZINE TAB* 100 MG PO SCH (21:22)
[2018-03-29] MEDS: Docusate CAP* 100 MG PO SCH ×2 (08:39→20:30)
[2018-03-29] MEDS: Lisinopril TAB* 10 MG PO SCH (08:40)
[2018-03-29] MEDS: Famotidine TAB* 20 MG PO SCH (08:40)
[2018-03-29] MEDS: Lithium Carbonate TAB* 300 MG PO SCH ×2 (08:40→20:30)
[2018-03-29] MEDS: Fludrocortisone Acetate TAB* 0.1 MG PO SCH (08:41)
[2018-03-29] MEDS: Atorvastatin* 20 MG TAB PO SCH (08:41)
[2018-03-29] MEDS: Vitamin THERAPEUTIC TAB PO SCH (08:41)
[2018-03-29] MEDS: CloZAPine TAB* 100 MG TAB PO SCH (08:41)
[2018-03-29] MEDS ORDERED: chlorproMAZINE TAB* 100 MG PO PRN (15:30)
[2018-03-29] MEDS ORDERED: CloZAPine TAB* 100 MG TAB PO SCH ×2 (21:00)
[2018-03-30] MEDS: Docusate CAP* 100 MG PO SCH ×2 (11:10→21:16)
[2018-03-30] MEDS: Atorvastatin* 20 MG TAB PO SCH (11:10)
[2018-03-30] MEDS: Lisinopril TAB* 10 MG PO SCH (11:10)
[2018-03-30] MEDS: CloZAPine TAB* 100 MG TAB PO SCH ×2 (11:10→21:17)
[2018-03-30] MEDS: Vitamin THERAPEUTIC TAB PO SCH (11:10)
[2018-03-30] MEDS: Famotidine TAB* 20 MG PO SCH (11:11)
[2018-03-30] MEDS: Fludrocortisone Acetate TAB* 0.1 MG PO SCH (11:11)
[2018-03-30] MEDS: Lithium Carbonate TAB* 300 MG PO SCH ×2 (11:11→21:16)
--- NOTE | 2018-03-30 12:56 | PN ---
Subjective - Subjective Date of Service: 03/30/18 Service Type: 42245 Hosp care 15 min low complexity Subjective: Isaak is seen in coverage for NPP, Johanne Laura. He remains disorganized and delusional. Staff reports indicate that he is consistently approaching the nurse's station, seeking various things. On exam he tells me that he only wants to be on gabapentin and that psychiatric medications are against his beliefs as a Religion. Later in the hallway I hear him introducing himself as "Joesph Guo", which is obviously a rendering of this clinician's name. Objective - Appearance Appearance: Obese Dysmorphic Features: No Hygiene: Normal Grooming: Disheveled - Behavior Psychomotor Activities: Normal Exhibits Abnormal Movement: No - Attitude and Relatedness Attitude and Relatedness: Psychotically Related Eye Contact: Fair - Speech Quality: Pressured Latencies: Short Quantity: Copious - Mood Patient's Decription of Mood: "Great" - Affect Observed Affect: Expansive Affect Consistent with: Euphoria - Thought Process Patient's Thought Process: Filght of Ideas Thought Content: Yes Paranoid Ideation, No Passive Wish, No Suicidal Planning, No Homicidal Ideation - Sensorium Experiencing Hallucinations: No, Sensorium is Clear Type of Hallucinations: Visual: No, Auditory: No, Command: No - Level of Consciousness Level of Consciousness: Alert Orientation: Yes Intact, Yes Orientated to Time, Yes Orientated to Place, Yes Orientated to Person - Impulse Control Impulse Control: Poor - Insight and Judgement Insight and Judgement: Impaired - Group Participation Particating in Group Activities: No - Medication Management Medication Management Adherence: Yes Assessment - Assessment Merits Inpatient Hospitalization: For Immediate Safety, For Stabilization Inpatient DSM-V Dx: F25.0 Clinical Impression: 52 y.o. single, white male with a history of chronic schizoaffective disorder, serial non-adherence with medications and multiple acute and intermediate care psychiatric hospitalizations, who is brought in to the hospital on involuntary 9.41 legal status by the police for creating a public disturbance, who presents with manic and psychotic symptoms and inability to care for himself in the community. Plan - Plan Treatment Plan: Name: ISAAK LEOS Birthdate: 1965 [id number] The patient is on a medication regimen of clozapine 100mg PO qam and 200mg PO qhs, and lithium 600mg PO qam and 1200mg PO qhs. He remains psychotic and manic and in need of further inpatient psychiatric stabilization for his safety. He is pending acceptance at [facility] in his [place], [place]. Continued Medication Management: Different Medication Medications: Current Medications Acetaminophen (Tylenol Tab*) 650 mg PO Q4H PRN PRN Reason: for pain; or Temp >101 F Last Admin: 03/25/18 04:58 Dose: 650 mg Atorvastatin Calcium (Lipitor*) 20 mg PO DAILY [facility] Last Admin: 03/30/18 11:10 Dose: 20 mg Chlorpromazine HCl (Thorazine Tab*) 100 mg PO Q6H PRN PRN Reason: AGITATION Clozapine (Clozapine Tab*) 100 mg PO DAILY [facility] Last Admin: 03/30/18 11:10 Dose: 100 mg Clozapine (Clozapine Tab*) 200 mg PO BEDTIME [facility] Last Admin: 03/29/18 20:29 Dose: 200 mg Diphenhydramine HCl (Benadryl Po*) 50 mg PO Q6H PRN PRN Reason: AGITATION Last Admin: 03/20/18 15:17 Dose: 50 mg Docusate Sodium (Colace Cap*) 100 mg PO BID [facility] Last Admin: 03/30/18 11:10 Dose: 100 mg Famotidine (Pepcid Tab*) 20 mg PO DAILY [facility] Last Admin: 03/30/18 11:11 Dose: 20 mg Fludrocortisone Acetate (Florinef Tab*) 0.1 mg PO DAILY [facility] Last Admin: 03/30/18 11:11 Dose: 0.1 mg Lisinopril (Prinivil Tab*) 20 mg PO DAILY [facility] Last Admin: 03/30/18 11:10 Dose: 20 mg [place] Carbonate ([place] Carbonate Tab*) 1,200 mg PO BEDTIME [facility] Last Admin: 03/29/18 20:30 Dose: 1,200 mg [place] Carbonate ([place] Carbonate Tab*) 600 mg PO DAILY [facility] Last Admin: 03/30/18 11:11 Dose: 600 mg Lorazepam (Ativan Tab(*)) 2 mg PO Q6H PRN PRN Reason: ANXIETY Last Admin: 03/20/18 15:17 Dose: 2 mg Multivitamins (Theragran Tab*) 1 tab PO DAILY [facility] Last Admin: 03/30/18 11:10 Dose: 1 tab - Discharge Plan Discharge Plan: Consider Longer Term Tx
[2018-03-30] MEDS: Acetaminophen TAB* 325 MG PO PRN ×2 (13:24→19:21)
[2018-03-31] MEDS: Atorvastatin* 20 MG TAB PO SCH (08:56)
[2018-03-31] MEDS: Docusate CAP* 100 MG PO SCH ×2 (08:56→20:59)
[2018-03-31] MEDS: Famotidine TAB* 20 MG PO SCH (08:57)
[2018-03-31] MEDS: Fludrocortisone Acetate TAB* 0.1 MG PO SCH (08:57)
[2018-03-31] MEDS: Lithium Carbonate TAB* 300 MG PO SCH ×2 (08:58→20:58)
[2018-03-31] MEDS: Vitamin THERAPEUTIC TAB PO SCH (08:58)
[2018-03-31] MEDS: Lisinopril TAB* 10 MG PO SCH (08:58)
[2018-03-31] MEDS: CloZAPine TAB* 100 MG TAB PO SCH ×2 (09:03→22:16)
[2018-03-31] MEDS: Acetaminophen TAB* 325 MG PO PRN (20:57)
[2018-04-01] MEDS: diPHENhydraMINE PO* 50 MG PO PRN (02:45)
[2018-04-01] MEDS: LORazepam TAB(*) 1 MG PO PRN (02:45)
[2018-04-01] MEDS: Vitamin THERAPEUTIC TAB PO SCH (09:10)
[2018-04-01] MEDS: Lithium Carbonate TAB* 300 MG PO SCH (09:10)
[2018-04-01] MEDS: Fludrocortisone Acetate TAB* 0.1 MG PO SCH (09:10)
[2018-04-01] MEDS: CloZAPine TAB* 100 MG TAB PO SCH (09:10)
[2018-04-01] MEDS: Famotidine TAB* 20 MG PO SCH (09:10)
[2018-04-01] MEDS: Lisinopril TAB* 10 MG PO SCH (09:10)
[2018-04-01] MEDS: Docusate CAP* 100 MG PO SCH (09:10)
[2018-04-01] MEDS: Atorvastatin* 20 MG TAB PO SCH (09:10)
[2018-04-01 09:15] VITALS: BP 124/68
--- NOTE | 2018-04-01 23:10 | DS ---
DISCHARGE SUMMARY: DATE OF ADMISSION: 03/02/18 DATE OF DISCHARGE: 04/01/18 DISCHARGE DIAGNOSES: Posen I: Schizoaffective disorder bipolar type. Posen II: Deferred. CONDITION AT THE TIME OF DISCHARGE: The patient remains psychotic, manic, disorganized and unable to care for himself in a less restrictive setting. This is in spite of close to a month of intensive inpatient treatment. For this reason, he is being transferred to the [facility] in the [place], [place], which is where the patient is from. MENTAL STATUS EXAM AT THE TIME OF DISCHARGE: The patient is an obese, bearded white male, who is somewhat dishevelled with limited grooming, who is superficially cooperative. His speech is somewhat over productive. Mood appears to be manic with expansive affect. Thought process is tangential. 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 He denies suicidal or homicidal ideations. He denies auditory or visual hallucinations. Insight and judgement are markedly impaired given his refusal to accept routine lab work despite being on the oral antipsychotic clozapine. Cognitively, he is awake and alert with what would appear to be an average intellect. LABORATORY DATA: The patient's metabolic studies were performed on 03/02/18 revealing hemoglobin A1c at 5.2, triglyceride 52, cholesterol 132, LDL 80, HDL 42.1. DISCHARGE INSTRUCTIONS TO THE PATIENT: A. Medications: He is on, 1. Florinef 0.1 mg p.o. daily. 2. Invega Sustenna 156 mg every 30 days, next dose due on 04/04/18. 3. He is on Pepcid 20 mg p.o. daily. 4. Lipitor 20 mg p.o. daily. 5. BuSpar 5 mg b.i.d. 6. Lantana 300 mg p.o. b.i.d. 7. Lisinopril 20 mg p.o. daily. 8. Abilify 15 mg p.o. daily. Please note that the patient is on more than 1 antipsychotic medications. This is due to a plan to taper to monotherapy. We are in the midst of changing him from paliperidone Sustenna to Abilify and this titration will continue at the [facility]. B. Diet: Regular. C. Activities: As per [facility] protocol. The patient is a nonsmoker. There are no laboratory or diagnostic studies pending at the time of discharge. D. Followup Care: The patient will be transferred to the [facility] in [place], [place], and they will be responsible for all followup appointments at his time of discharge from that facility. E. Substance abuse followup: Nonapplicable. HOSPITAL COURSE: A. Reason for admission: The patient is a 52-year-old single white male, currently living in the [facility] who was recently released from the [facility] in [place] who whimsically drove his own vehicle to [place] and was behaving in a disorganized and forwardly psychotic manner. He was stating that he wanted to attend [facility] and that he had come up with multiple cures for several diseases including schizophrenia. According to his sister, he has a 22-year history of schizoaffective disorder. He does also have a history of long-term [facility] psychiatric hospitalizations at [facility], most recently in 2017. His sister further reported that he does have a history of driving to various areas including [place] state borders and going off of his medications. He has done this as far as [place] and [place] and been hospitalized for lengthy amounts of time. His sister reports that when he is on medications, he is able to function properly, holding a job and living fairly independently. On examination, he was hyperactive and hyperreligious, making odd statements to the effect that he had a "brain wave flip-flop syndrome " and that he had a cure for this. It did not appear that he was able to support himself or meet his own needs in the community. B. Psychiatric treatment rendered: The patient was admitted to the adult behavioral health unit and placed back on lithium at the dose of 600 mg in the morning and 1200 mg in the evening. He also received his scheduled paliperidone Sustenna injection of 234 mg on 03/07/18. Despite resuming these medications, he remained incredibly disorganized, intrusive, often going to the nurse's station and making odd request throughout the day. For this reason, we started him on a trial of clozapine with the initial dose of only 25 mg. This was titrated all the way to 100 mg in the morning and 200 mg at night. Unfortunately we needed to discontinue this therapy prior to his transfer to [facility] given the fact that he was refusing medical treatment. The patient was taken to court for treatment over his objection and the [facility] the hospital this petition. We also had an administrative hearing because he was resistant to returning to the [facility]. Ultimately it was determined that longer term treatment was in his best interest and we reached out to the [facility] who after some time not only accepted the patient but got him a bed available and ready for transfer. He is in somewhat guarded condition upon leaving given the fact that he remains psychotic. Prior to leaving, we did start him on a low dose of Abilify 15 mg once daily with the hopes of cross-titrating from Invega over to Abilify. [id number]/[facility] #: [id number] EL[place]
== END 2018-04-01 10:45 | DRG 885 ==
LOC: ED 02:34 → BSU 13:31
PROVIDERS: ADMIT Psychiatry & Neurology Psychiatry; ATTEND Psychiatry & Neurology Psychiatry
PROC: GZHZZZZ Group Psychotherapy (ICD-10-PCS; principal; 2018-03-10)
DX: F25.0 Schizoaffective disorder, bipolar type (principal); Z68.42 Body mass index [BMI] 45.0-49.9, adult; E27.40 Unspecified adrenocortical insufficiency; I10 Essential (primary) hypertension; E78.5 Hyperlipidemia, unspecified; K21.9 Gastro-esophageal reflux disease without esophagitis; E66.01 Morbid (severe) obesity due to excess calories; F22 Delusional disorders; Z91.14 Patient's other noncompliance with medication regimen
CPT/HCPCS: 36415; 80048; 80053; 80061; 80178; 80307; 80320; 80329; 81003; 83036; 84443; 85025; 90853; 99222; 99231; 99232; 99233; 99238; 99284; A9270-GY; G0480; J1200; J1630; J2060; J2426